=== PATIENT | female | born 1995 | race Caucasian/White ===

== ENCOUNTER → 2019-07-05 15:23 | Outpatient (BNVA) | payer MEDICAID, SELFPAY | PROVIDERS: PCP Family Medicine; Visit Provider Family Medicine | DX: R68.89 Other general symptoms and signs (principal); K52.9 Noninfective gastroenteritis and colitis, unspecified | CPT/HCPCS: 87804 ==

== ENCOUNTER → 2020-03-05 07:41 | Outpatient (BNVA) | payer MEDICAID, SELFPAY | PROVIDERS: Visit Provider Family Medicine | DX: R53.83 Other fatigue (principal); F32.9 Major depressive disorder, single episode, unspecified | CPT/HCPCS: 80053; 84439; 84443; 85025 ==

== ENCOUNTER → 2020-03-22 14:30 | Outpatient (BNVA) | payer MEDICAID, SELFPAY | PROVIDERS: Visit Provider Social Worker Clinical | DX: F34.1 Dysthymic disorder (principal) | CPT/HCPCS: 90834 ==

== ENCOUNTER 2020-04-01 09:40 | Emergency (ER) | payer MEDICAID, SELFPAY ==
[2020-04-01 09:42] VITALS: BP 127/86; PULSE 91; RESP 16; TEMP 36.5; O2SAT 95; BMI 24.5
--- NOTE | 2020-04-01 10:25 | W.ED.ARRPALP ---
HPI - Arrhythmia/Palpitations General: Chief Complaint: Arrhythmia/Palpitations Stated Complaint: high heart rate Time Seen by Provider: 04/01/20 09:47 History of Present Illness: HPI narrative: 24-year-old female presents emergency room with complaint of palpitations and irregular heartbeat on occasion been intermittent started yesterday feels like her throat is jumping. She denies any significant caffeine intake she recently stopped smoking had been doing 1/2 pack to a pack a day now is stopped completely. She denies any pseudoephedrine use any nasal sprays any street drugs she does drink occasionally usually binge drinks on a single episode she will have 5-6 drinks but did not drink the rest of the week. She not had any recent respiratory illness, no exposure to Covid no flulike symptoms no cough or shortness of breath. She does note she gets a little bit more of these skipped beats with exertion. MD complaint: skipped beats and palpitations Onset (ago): day(s) Associated symptoms: Deny nausea or vomiting Review of Systems Const: Denies: fever(s), chills, body aches, change in appetite, fatigue or malaise ENMT: Denies: throat pain, ear or mastoid pain, nasal discharge or nasal congestion Card: Denies: chest pain, edema, dyspnea on exertion or orthopnea Resp: Denies: dyspnea, productive cough or non-productive cough GI: Denies: abdominal pain, nausea, vomiting, hematemesis, coffee ground emesis, diarrhea, constipation, bloating, hematochezia or melena : Denies: flank pain, difficulty voiding, dysuria, urinary frequency or urinary urgency Skin/Breast: Denies: rash or pruritus PFSH ED PFSH: Social History Smoking and tobacco status: current every day smoker cigarettes Alcohol intake: current Alcohol intake frequency: holidays/special occasions only Current gender identity: Female Physical Exam Const: COMMON NORMALS: no acute distress GENERAL APPEARANCE: cooperative and comfortable ORIENTATION/CONSCIOUSNESS: Yes awake, Yes oriented to person, Yes oriented to place and Yes oriented to time HENMT: COMMON NORMALS: normocephalic, atraumatic and hearing grossly normal bilaterally HEAD & SCALP: normocephalic and atraumatic Neck/C-Spine: COMMON NORMALS: no JVD Resp: COMMON NORMALS: normal respiratory effort, No retractions, No use of accessory muscles and clear to auscultation bilaterally AUSCULTATION: clear to auscultation bilaterally Cardio: COMMON NORMALS: no JVD, regular rate, regular rhythm and No murmurs present (Cardio) RATE: regular rate RHYTHM: regular rhythm GI: COMMON NORMALS: Soft to palpation and No hepatosplenomegaly present AUSCULTATION: Yes normoactive bowel sounds PALPATION: Yes Soft to palpation, No Tenderness to palpation present (GI), No Guarding due to palpation present (GI) and Yes No hepatosplenomegaly present Extremity: COMMON NORMALS: normal to inspection, capillary refill normal, no clubbing, cyanosis or edema, no calf tenderness and no pedal edema Neuro: SENSORIUM/ORIENTATION: Yes oriented to person, Yes oriented to place and Yes oriented to time Skin: COMMON NORMALS: no rashes or lesions noted GENERAL SKIN EXAM: no rashes or lesions noted Course Vital Signs: Vital signs: Vital Signs Temperature 97.7 F 04/01/20 09:42 Pulse Rate 80 04/01/20 12:00 Respiratory Rate 17 04/01/20 12:00 Blood Pressure 110/69 04/01/20 12:00 Pulse Oximetry 96 04/01/20 12:00 MDM - Arrhythmia/Palpitations MDM Narrative: Medical decision making narrative: Set up for 24-hour Holter. Follow-up with primary care Lab Data: Labs: Lab Results 04/01/20 04/01/20 04/01/20 Range/Units 10:50 10:50 10:50 WBC 6.7 (4.0-10.0) 10^3/ uL RBC 4.74 (4.1-5.3) 10^6/u L Hgb 14.4 (11.5-15.3) g/dL Hct 42.5 (37.0-47.0) % MCV 89.7 (81-99) fL MCH 30.4 (28.0-34.0) pg MCHC 33.9 (30.0-36.0) g/dL RDW 11.8 L (12.1-15.1) % Plt Count 181 (130-400) 10^3/c mm MPV 11.5 H (7.4-10.4) fL Neut % (Auto) 47.9 % Lymph % (Auto) 41.3 % Wells % (Auto) 6.1 % Eos % (Auto) 4.0 % Baso % (Auto) 0.6 % Neut # (Auto) 3.20 (1.8-7.7) 10^3/u L Lymph # (Auto) 2.8 (0.8-4.8) 10^3/u L Wells # (Auto) 0.4 (0.2-0.9) 10^3/u L Eos # (Auto) 0.3 (0.0-0.8) 10^3/u L Baso # (Auto) 0.0 (0.0-0.1) 10^3/u L Nucleated RBC % (a uto) 0 % Nucleated RBCs # 0.0 /100WBC Sodium 138 (136-145) mmol/L Potassium 4.1 (3.5-5.1) mmol/L Chloride 106 (98-107) mmol/L Carbon Dioxide 21 L (22-29) mmol/L Anion Gap 15.1 (5-19) BUN 15 (6-20) mg/dL Creatinine 0.5 (0.5-0.9) mg/dL GFR Calculation 149.1 H (90-130) mL/min Glucose 98 (65-115) mg/dL Calculated Osmolal ity 287 (285-295) mOsm/k g Calcium 9.3 (8.5-10.5) mg/dL Total Bilirubin 0.3 (0.15-1.2) mg/dL AST 15 (0-32) U/L ALT 19 (0-33) U/L Alkaline Phosphata se 81 (35-105) IU/L Total Protein 7.5 (6.6-8.7) g/dL Albumin 4.7 (3.5-5.2) g/dL Globulin 2.8 (1.3-4.6) g/dL TSH 1.72 (0.27-4.20) uIU/ mL Discharge Plan Discharge Patient Disposition: Home Clinical Impression: Heart palpitations Condition: Stable Prescriptions: No Action fluoxetine [Prozac] 10 mg capsule 10 mg PO DAILY Qty: 30 RF: 5 Discharge Orders: Discharge Order (Routine); Ordered 04/01/20 Ordered By: New Wills Discharge Diet: Usual diet Discharge Activity: Increase activity as tolerated Activity Restrictions/Additional Instructions: Case management will call with arrangements for a 24-hour Holter. Avoid nicotine caffeine alcohol or any other stimulants from [id number] medications. Follow-up with your doctor with 24-hour Holter once is completed. Return to the ER if you have further problems. Discharge Date/Time: 04/01/20 12:00 Coding Level of Care Code ED Automatic Nailing Machine Operator for Di Garcia
--- NOTE | 2020-04-01 10:28 | XRR_ITS ---
PROCEDURE INFORMATION: Exam: XR Chest, 1 View Exam date and time: 04/01/2020 10:29 AM Age: 24 years old Clinical indication: Cough and dyspnea; Additional info: Dyspnea/cough TECHNIQUE: Imaging protocol: XR of the chest Views: 1 view. COMPARISON: No relevant prior studies available. FINDINGS: Lungs: Unremarkable. No consolidation. Pleural space: Unremarkable. No pleural effusion. No pneumothorax. Heart/Mediastinum: There is enlargement of the main pulmonary artery segment along the left side of the mediastinum which may indicate an enlarged pulmonary artery and the possibility of pulmonary hypertension. Clinical correlation and follow-up are advised. Echocardiogram may be helpful.. Bones/joints: Unremarkable. XR/XR chest 1V portable [id number] IMPRESSION: There is enlargement of the main pulmonary artery segment. This could indicate pulmonary hypertension. An echocardiogram may be helpful for further evaluation.
--- NOTE | 2020-04-01 10:28 | ECG_ITS ---
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1995 Requested By: New Solis Order Number: [id number] David MD: ADEEL SHEARER Measurements Intervals Goodman Rate: 91 P: 60 OH: 169 QRS: 121 QRSD: 86 T: 25 QT: 357 QTc: 441 Interpretive Statements SINUS RHYTHM POSSIBLE RIGHT VENTRICULAR HYPERTROPHY [SOME/ALL OF: PROMINENT R IN V1, LATE TRANSITION, RAD, LISA, SSS] ST DEVIATION AND MODERATE T-WAVE ABNORMALITY, CONSIDER ANTEROLATERAL ISCHEMIA [-0.1+ mV T WAVE IN V3-V6] Compared to ECG 01/12/2017 19:05:49 Atrial abnormality now present Possible ischemia now present Right-axis deviation no longer present T-wave abnormality still present Electronically Signed On 04-01-2020 20:14:58 HOME THEATER EXPERIENCE EXPERT by ADEEL SHEARER [id number] f
[2020-04-01 10:34] VITALS: BP 127/86; PULSE 95; RESP 20; O2SAT 93
[2020-04-01] MEDS: sodium chloride 0.9% 1,000 ML 999 ML IV (10:55)
[2020-04-01 11:14] LABS: Basophils % 0.6 %; Eosinophils # 0.3 10^3/uL (0.0-0.8); Hematocrit 42.5 % (37.0-47.0); Hemoglobin 14.4 g/dL (11.5-15.3); Lymphocytes # 2.8 10^3/uL (0.8-4.8); Lymphocytes % 41.3 %; Mean Corpuscular HGB Conc 33.9 g/dL (30.0-36.0); Mean Corpuscular Hemoglobin 30.4 pg (28.0-34.0); Mean Corpuscular Volume 89.7 fL (81-99); Mean Platelet Volume 11.5 fL (7.4-10.4); Monocytes # 0.4 10^3/uL (0.2-0.9); Monocytes % 6.1 %; Neutrophils % 47.9 %; Nucleated Red Blood Cells % 0 %; Platelet Count 181 10^3/cmm (130-400); Red Blood Count 4.74 10^6/uL (4.1-5.3); Red Cell Distribution Width 11.8 % (12.1-15.1); White Blood Count 6.7 10^3/uL (4.0-10.0)
[2020-04-01 11:29] VITALS: BP 95/73; PULSE 83; RESP 20; O2SAT 97
[2020-04-01 11:30] LABS: Alanine Aminotransferase 19 U/L (0-33); Albumin Level 4.7 g/dL (3.5-5.2); Alkaline Phosphatase 81 IU/L (35-105); Anion Gap 15.1 (5-19); Aspartate Amino Transferase 15 U/L (0-32); Blood Urea Nitrogen 15 mg/dL (6-20); Calcium 9.3 mg/dL (8.5-10.5); Carbon Dioxide 21 mmol/L (22-29); Chloride 106 mmol/L (98-107); Globulin 2.8 g/dL (1.3-4.6); Glomerular Filtration Rate 149.1 mL/min (90-130); Glucose 98 mg/dL (65-115); Osmolality Calculated 287 mOsm/kg (285-295); Potassium 4.1 mmol/L (3.5-5.1); Sodium 138 mmol/L (136-145); Total Bilirubin 0.3 mg/dL (0.15-1.2); Total Protein 7.5 g/dL (6.6-8.7)
[2020-04-01 12:00] VITALS: BP 110/69; PULSE 80; RESP 17; O2SAT 96
[2020-04-01 12:37] LABS: Thyroid Stimulating Hormone 1.72 uIU/mL (0.27-4.20)
--- NOTE | 2020-04-02 14:39 | DCPLANNER ---
manager lab had message to schedule a follow up appointment for patient with [facility] for a 24 hour halter monitor. manager lab faxed order for monitor to [facility], will call for appointment information.
--- NOTE | 2020-04-04 10:39 | DCPLANNER ---
Patient has a follow up appointment scheduled for Thursday, April 16, 2020 at 1:30 with [facility] for a24 hour monitor. Clinic will call patient with appointment information.
--- NOTE | 2020-05-14 12:33 | DCPLANNER ---
Patient had a follow up appointment scheduled for 04.16.20 with [facility] - patient did not attend appointment.
== END 2020-04-01 12:00 | disposition home or self-care (01) ==
PROVIDERS: Emergency Provider Family Medicine
DX: R00.2 Palpitations (principal); F17.210 Nicotine dependence, cigarettes, uncomplicated
CPT/HCPCS: 12345; 71045; 80053; 84443; 85025; 93005; 96360; 99283; J7030

== ENCOUNTER 2021-02-09 13:09 | Observation (INO) | payer MEDICAID, SELFPAY ==
[2021-02-09] VITALS (30 sets, daily range): BP systolic 102–128; BP diastolic 68–92; PULSE 78–121; RESP 15–30; TEMP 36.4; O2SAT 90–95; BMI 24.5
--- NOTE | 2021-02-09 13:36 | CTR_ITS ---
PROCEDURE INFORMATION: Exam: CT Head Without Contrast Exam date and time: 02/09/2021 1:36 PM Age: 25 years old Clinical indication: Visual disturbance and weakness, extremity; Left; Additional info: Visual changes, left arm weakness TECHNIQUE: Imaging protocol: Computed tomography of the head without contrast. Sagittal and coronal reformatted images were created and reviewed. Radiation optimization: All CT scans at this facility use at least one of these dose optimization techniques: automated exposure control; mA and/or kV adjustment per patient size (includes targeted exams where dose is matched to clinical indication); or iterative reconstruction. COMPARISON: CT head wo con* [id number] 01/12/2017 7:49 PM RADIATION DOSE METRICS: Total DLP (mGy-cm): 759.5 FINDINGS: Brain: No acute intracranial hemorrhage. No acute infarct. No intra-axial or extra-axial masses. Ferreira-white matter differentiation is preserved. No cerebral edema. No extra-axial fluid collections. No midline shift. No evidence for Chiari 1 malformation. Cerebral ventricles: No hydrocephalus. Paranasal sinuses: Mild mucoperiosteal thickening in the the left sphenoid sinus. Other visualized paranasal sinuses are clear. Mastoid air cells: Visualized mastoid air cells are clear. Orbital cavity: No acute abnormality in the visualized orbits. Bones/joints: No acute fracture. Soft tissues: The extracranial soft tissues are unremarkable. CT/CT head wo con* [id number] IMPRESSION: 1. No acute abnormality of the brain. 2. Mild mucoperiosteal thickening in the the left sphenoid sinus. Radiation Dose CTDIVOL = (mGy): DLP = 759.5 (mGy-cm)
--- NOTE | 2021-02-09 13:37 | ED_ITS ---
HPI - Syncope General: Chief Complaint: Syncope Stated Complaint: Near Syncope Time Seen by Provider: 02/09/21 13:25 History of Present Illness: HPI narrative: This patient is a 25 year old female presenting from home with an episode of nearly passing out, visual changes and left arm weakness. She was at home at around noon today and noted that her left arm felt a little funny. She tried to set her phone down on the counter and she missed the counter, dropping it on the floor. She bent over to pick it up and got lightheaded feeling like she might pass out. She also developed blurry vision - like static. She says that was there initially, then went away, but came back since being here. She has a history of migraines - and has the vision changes with her migraines, but has never had any other neuro symptoms with her migraines. She has not taken any medications today and does not normally take anything for her migraines. She admits to a history of anxiety and has some tingling around her mouth which she knows is her anxiety. She also has heart palpitations and had a lot of them yesterday. She notes a URI last week that was going around her place of work - everyone was tested for COVID and were all neg. She has not had any other changes in activity recently but notes that she has been under a lot of stress. complaint: felt faint and almost passed out Onset (ago): hour(s) (1.5) Prodromal symptoms: vision changes, lightheaded and palpitations Context: at rest Injuries sustained associated with event: none Associated symptoms: Reports other (left hand feels like it is slow to react, she is right handed); Deny abdominal pain, chest pain, fever(s), headache(s) or nausea Review of Systems General: Reports: 10 or more systems reviewed and unremarkable except in HPI and below Const: Denies: fever(s), chills, fatigue or malaise Eyes: Reports: change in vision and blurry vision ENMT: Denies: odynophagia Card: Reports: palpitations and pre-syncope; Denies: chest pain or swelling of feet/ankles Resp: Reports: dyspnea; Denies: productive cough or non-productive cough GI: Denies: abdominal pain, nausea or vomiting : Denies: flank pain or difficulty voiding Musc: Denies: neck pain or back pain Skin/Breast: Denies: rash Neuro: Reports: weakness in extremities and lack of coordination; Denies: headache(s) or numbness in extremities Psych: Reports: anxiety and depression Cameron/Lymph: Denies: easy bruising or easy bleeding PFSH ED PFSH: Medical History Generalized anxiety disorder Family History Grandmother Cancer Paternal -- stomach and skin Grandfather Hyperlipidemia Paternal Hypertension Paternal Mother Ovarian cyst Denies family history of Diabetes Clotting disorder Chronic kidney disease (CKD) Bleeding disorder Thyroid disease Stroke Female Reproductive History: Date of last menstrual period: 01/29/21 Physical Exam Const: COMMON NORMALS: no acute distress, patient oriented x3, no limitations and alert GENERAL APPEARANCE: cooperative and comfortable HENMT: HEAD & SCALP: normal to inspection FACE & SINUS: normal facial exam Eye: GENERAL EYE: appearance normal, both eyes and all related structures Neck/C-Spine: COMMON NORMALS: supple, no meningeal signs and no JVD Chest: COMMONS NORMALS: normal inspection of the chest Resp: COMMON NORMALS: normal respiratory effort, No use of accessory muscles and clear to auscultation bilaterally AUSCULTATION: clear to auscultation bilaterally Cardio: COMMON NORMALS: no JVD, regular rate, regular rhythm and No murmurs present (Cardio) RATE: regular rate RHYTHM: regular rhythm GI: COMMON NORMALS: Normal to inspection, nondistended, normoactive bowel sounds present, Soft to palpation and non-tender INSPECTION: Yes normal to inspection AUSCULTATION: Yes normoactive bowel sounds PALPATION: Yes Soft to palpation Back/Pelvis: COMMON NORMALS: thoracic and lumbar spine normal to inspection Extremity: COMMON NORMALS: normal to inspection Neuro: COMMON NORMALS: patient oriented x3, moves all extremities, no focal motor deficits and no sensory deficits noted SENSORIUM/ORIENTATION: Yes alert MENINGEAL SIGNS: Yes no meningeal signs CRANIAL NERVES: Yes CN normal except as noted COORDINATION/BALANCE: [id number] test normal COORDINATION: [id number]-[id number] test normal Psych: COMMON NORMALS: mental status grossly normal, cooperative and normal affect Skin: COMMON NORMALS: no rashes or lesions noted and turgor normal GENERAL SKIN EXAM: no rashes or lesions noted and turgor normal Course ED course: EKG abnormal - changes new since prior. RN noted that her sats dropped to 83% when she got up to the bedside commode and the patient did compl ain of feeling SOB. She had mentioned feeling short of breath in the HPI and ROS, but had attributed it to her anxiety. Vital Signs: Vital signs: Vital Signs Temperature 97.5 F L 02/09/21 13:16 Pulse Rate 88 02/09/21 17:30 Respiratory Rate 16 02/09/21 17:30 Blood Pressure 111/71 02/09/21 17:30 Pulse Oximetry 94 02/09/21 17:30 MDM - Syncope Lab Data: Labs: Lab Results 02/09/21 02/09/21 02/09/21 Range/Units 13:49 13:49 13:49 WBC 6.8 (4.0-10.0) 10^3/ uL RBC 5.01 (4.1-5.3) 10^6/u L Hgb 15.4 H (11.5-15.3) g/dL Hct 45.1 (37.0-47.0) % MCV 90.0 (81-99) fl MCH 30.7 (28.0-34.0) pg MCHC 34.1 (30.0-36.0) g/dL RDW 11.8 L (12.1-15.1) % Plt Count 186 (130-400) 10^3/c mm MPV 11.7 H (7.4-10.4) fL Neut % (Auto) 49.6 % Lymph % (Auto) 39.5 % Washburn % (Auto) 6.5 % Eos % (Auto) 3.4 % Baso % (Auto) 0.7 % Neut # (Auto) 3.35 (1.8-7.7) 10^3/u L Lymph # (Auto) 2.7 (0.8-4.8) 10^3/u L Washburn # (Auto) 0.4 (0.2-0.9) 10^3/u L Eos # (Auto) 0.2 (0.0-0.8) 10^3/u L Baso # (Auto) 0.1 (0.0-0.1) 10^3/u L Nucleated RBC % (a uto) 0 % Nucleated RBCs # 0.0 /100WBC D-Dimer 0.30 (0-0.59) ug/mIFE U Sodium 138 (136-145) mmol/L Potassium 4.1 (3.5-5.1) mmol/L Chloride 105 (98-107) mmol/L Carbon Dioxide 22 (22-29) mmol/L Anion Gap 15.1 (5-19) BUN 7 (6-20) mg/dL Creatinine 0.6 (0.5-0.9) mg/dL GFR Calculation 119.9 (90-130) mL/min Glucose 106 (65-115) mg/dL Calculated Osmolal ity 284 L (285-295) mOsm/k g Calcium 8.8 (8.5-10.5) mg/dL Total Bilirubin 0.4 (0.15-1.2) mg/dL AST 13 (0-32) U/L ALT 11 (0-33) U/L Alkaline Phosphata se 70 (35-105) IU/L Troponin T Baselin e (0-10) ng/L Troponin T 120 Min cocopah (0-10) ng/L Delta Troponin T (0-10) ABS# NT-Pro-B Natriuret Pep (0-125) pg/mL Total Protein 7.0 (6.6-8.7) g/dL Albumin 4.4 (3.5-5.2) g/dL Globulin 2.6 (1.3-4.6) g/dL HCG, Qual (Negative) Urine Color (Yellow) Urine Appearance (CLEAR) Urine pH (5-7) Ur Specific Gravit y (1.005-1.030) Urine Protein (Negative) Urine Glucose (UA) (Normal) Urine Ketones (Negative) Urine Blood (Negative) Urine Nitrate (Negative) Urine Bilirubin (Negative) Prot Sulfosalicyli c Acd (Negative) Urine Urobilinogen (Negative) mg/dL Ur Leukocyte Sherly ase (Negative) Urine RBC (0-2) /hpf Urine WBC (0-5) /hpf Ur Squamous Epith Cells (0-5) /hpf Amorphous Sediment Urine Bacteria (NONE) /hpf SARS-CoV-2 Ag (Rap id) (Negative) 09/12/21 09/12/21 09/12/21 Range/Units 13:49 13:49 15:03 WBC (4.0-10.0) 10^3/ uL RBC (4.1-5.3) 10^6/u L Hgb (11.5-15.3) g/dL Hct (37.0-47.0) % MCV (81-99) fl MCH (28.0-34.0) pg MCHC (30.0-36.0) g/dL RDW (12.1-15.1) % Plt Count (130-400) 10^3/c mm MPV (7.4-10.4) fL Neut % (Auto) % Lymph % (Auto) % Washburn % (Auto) % Eos % (Auto) % Baso % (Auto) % Neut # (Auto) (1.8-7.7) 10^3/u L Lymph # (Auto) (0.8-4.8) 10^3/u L Washburn # (Auto) (0.2-0.9) 10^3/u L Eos # (Auto) (0.0-0.8) 10^3/u L Baso # (Auto) (0.0-0.1) 10^3/u L Nucleated RBC % (a uto) % Nucleated RBCs # /100WBC D-Dimer (0-0.59) ug/mIFE U Sodium (136-145) mmol/L Potassium (3.5-5.1) mmol/L Chloride (98-107) mmol/L Carbon Dioxide (22-29) mmol/L Anion Gap (5-19) BUN (6-20) mg/dL Creatinine (0.5-0.9) mg/dL GFR Calculation (90-130) mL/min Glucose (65-115) mg/dL Calculated Osmolal ity (285-295) mOsm/k g Calcium (8.5-10.5) mg/dL Total Bilirubin (0.15-1.2) mg/dL AST (0-32) U/L ALT (0-33) U/L Alkaline Phosphata se (35-105) IU/L Troponin T Baselin e 6 (0-10) ng/L Troponin T 120 Min cocopah (0-10) ng/L Delta Troponin T (0-10) ABS# NT-Pro-B Natriuret Pep 302 H (0-125) pg/mL Total Protein (6.6-8.7) g/dL Albumin (3.5-5.2) g/dL Globulin (1.3-4.6) g/dL HCG, Qual Negative (Negative) Urine Color (Yellow) Urine Appearance (CLEAR) Urine pH (5-7) Ur Specific Gravit y (1.005-1.030) Urine Protein (Negative) Urine Glucose (UA) (Normal) Urine Ketones (Negative) Urine Blood (Negative) Urine Nitrate (Negative) Urine Bilirubin (Negative) Prot Sulfosalicyli c Acd (Negative) Urine Urobilinogen (Negative) mg/dL Ur Leukocyte Sherly ase (Negative) Urine RBC (0-2) /hpf Urine WBC (0-5) /hpf Ur Squamous Epith Cells (0-5) /hpf Amorphous Sediment Urine Bacteria (NONE) /hpf SARS-CoV-2 Ag (Rap id) (Negative) 02/09/21 02/09/21 02/09/21 Range/Units 15:03 16:32 18:04 WBC (4.0-10.0) 10^3/ uL RBC (4.1-5.3) 10^6/u L Hgb (11.5-15.3) g/dL Hct (37.0-47.0) % MCV (81-99) fl MCH (28.0-34.0) pg MCHC (30.0-36.0) g/dL RDW (12.1-15.1) % Plt Count (130-400) 10^3/c mm MPV (7.4-10.4) fL Neut % (Auto) % Lymph % (Auto) % Washburn % (Auto) % Eos % (Auto) % Baso % (Auto) % Neut # (Auto) (1.8-7.7) 10^3/u L Lymph # (Auto) (0.8-4.8) 10^3/u L Washburn # (Auto) (0.2-0.9) 10^3/u L Eos # (Auto) (0.0-0.8) 10^3/u L Baso # (Auto) (0.0-0.1) 10^3/u L Nucleated RBC % (a uto) % Nucleated RBCs # /100WBC D-Dimer (0-0.59) ug/mIFE U Sodium (136-145) mmol/L Potassium (3.5-5.1) mmol/L Chloride (98-107) mmol/L Carbon Dioxide (22-29) mmol/L Anion Gap (5-19) BUN (6-20) mg/dL Creatinine (0.5-0.9) mg/dL GFR Calculation (90-130) mL/min Glucose (65-115) mg/dL Calculated Osmolal ity (285-295) mOsm/k g Calcium (8.5-10.5) mg/dL Total Bilirubin (0.15-1.2) mg/dL AST (0-32) U/L ALT (0-33) U/L Alkaline Phosphata se (35-105) IU/L Troponin T Baselin e (0-10) ng/L Troponin T 120 Min cocopah 6.00 (0-10) ng/L Delta Troponin T 0 (0-10) ABS# NT-Pro-B Natriuret Pep (0-125) pg/mL Total Protein (6.6-8.7) g/dL Albumin (3.5-5.2) g/dL Globulin (1.3-4.6) g/dL HCG, Qual (Negative) Urine Color Yellow (Yellow) Urine Appearance Clear (CLEAR) Urine pH 8 H (5-7) Ur Specific Gravit y 1.015 (1.005-1.030) Urine Protein Neg (Negative) Urine Glucose (UA) Norm (Normal) Urine Ketones Negative (Negative) Urine Blood Neg (Negative) Urine Nitrate Negative (Negative) Urine Bilirubin Neg (Negative) Prot Sulfosalicyli c Acd Negative (Negative) Urine Urobilinogen Norm (Negative) mg/dL Ur Leukocyte Sherly ase 2+ H (Negative) Urine RBC None (0-2) /hpf Urine WBC 10-15 H (0-5) /hpf Ur Squamous Epith Cells 5-10 H (0-5) /hpf Amorphous Sediment Not Reportable Urine Bacteria Trace (NONE) /hpf SARS-CoV-2 Ag (Rap id) Negative (Negative) EKG Data^: EKG 1: EKG interpretation date: 02/09/21 EKG interpretation time: 13:59 Ischemic changes: non-specific ST-T wave changes (RVH, inverted T waves) Discharge Plan Discharge Prescriptions: No Action No Known Home Medications RF: 0 Coding Level of Care Code ED Operations Asst for Chg Fwd Exam Comprehensive
[2021-02-09 13:59] LABS: Basophils # 0.1 10^3/uL (0.0-0.1); Basophils % 0.7 %; Eosinophils # 0.2 10^3/uL (0.0-0.8); Eosinophils % 3.4 %; Hematocrit 45.1 % (37.0-47.0); Hemoglobin 15.4 g/dL (11.5-15.3); Lymphocytes # 2.7 10^3/uL (0.8-4.8); Lymphocytes % 39.5 %; Mean Corpuscular HGB Conc 34.1 g/dL (30.0-36.0); Mean Corpuscular Hemoglobin 30.7 pg (28.0-34.0); Mean Platelet Volume 11.7 fL (7.4-10.4); Monocytes # 0.4 10^3/uL (0.2-0.9); Monocytes % 6.5 %; Neutrophils # 3.35 10^3/uL (1.8-7.7); Neutrophils % 49.6 %; Nucleated Red Blood Cells % 0 %; Platelet Count 186 10^3/cmm (130-400); Red Blood Count 5.01 10^6/uL (4.1-5.3); Red Cell Distribution Width 11.8 % (12.1-15.1); White Blood Count 6.8 10^3/uL (4.0-10.0)
--- NOTE | 2021-02-09 14:06 | ECG_ITS ---
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 Measurements Intervals [place]roy Rate: 94 P: 68 DE: 187 QRS: 126 QRSD: 90 T: -6 QT: 347 QTc: 436 Interpretive Statements SINUS RHYTHM Possible right ventricular hypertrophy ST and T wave abnormality, consider anterolateral ischemia Compared to ECG 04/01/2020 09:45:31 No significant change Electronically Signed On 02-10-2021 19:13:41 CDT by Jeannine Aguilar M.D. [id number] f
[2021-02-09 14:15] LABS: Alanine Aminotransferase 11 U/L (0-33); Albumin Level 4.4 g/dL (3.5-5.2); Alkaline Phosphatase 70 IU/L (35-105); Aspartate Amino Transferase 13 U/L (0-32); Blood Urea Nitrogen 7 mg/dL (6-20); Calcium 8.8 mg/dL (8.5-10.5); Carbon Dioxide 22 mmol/L (22-29); Chloride 105 mmol/L (98-107); Globulin 2.6 g/dL (1.3-4.6); Glomerular Filtration Rate 119.9 mL/min (90-130); Glucose 106 mg/dL (65-115); Osmolality Calculated 284 mOsm/kg (285-295); Sodium 138 mmol/L (136-145); Total Bilirubin 0.4 mg/dL (0.15-1.2)
[2021-02-09 14:39] LABS: Anion Gap 15.1 (5-19)
[2021-02-09 14:40] LABS: Potassium 4.1 mmol/L (3.5-5.1)
[2021-02-09 14:48] LABS: Troponin(5th) Baseline 6 ng/L (0-10)
--- NOTE | 2021-02-09 15:03 | CTR_ITS ---
PROCEDURE INFORMATION: Exam: CTA Chest With Contrast Exam date and time: 02/09/2021 3:03 PM Age: 25 years old Clinical indication: Shortness of breath; Additional info: Cp, SOB, syncope TECHNIQUE: Imaging protocol: Computed tomographic angiography of the chest with contrast. 3D rendering (Not supervised by radiologist): MIP and/or 3D reconstructed images were created by the technologist. Radiation optimization: All CT scans at this facility use at least one of these dose optimization techniques: automated exposure control; mA and/or kV adjustment per patient size (includes targeted exams where dose is matched to clinical indication); or iterative reconstruction. Contrast material: OMNIPAQUE 350; Contrast volume: 70 ml; Contrast route: INTRAVENOUS (IV); COMPARISON: CR XR chest 1V portable [id number] 04/01/2020 10:35 AM RADIATION DOSE METRICS: Total DLP (mGy-cm): 492.3 FINDINGS: Pulmonary arteries: Normal. No pulmonary emboli. Aorta: Unremarkable. No aortic aneurysm. No aortic dissection. Lungs: Unremarkable. No consolidation. No masses. Pleural spaces: Unremarkable. No pneumothorax. No pleural effusion. Heart: Unremarkable. No cardiomegaly. No pericardial effusion. Lymph nodes: Unremarkable. No enlarged lymph nodes. Bones/joints: Unremarkable. No acute fracture. Soft tissues: Unremarkable. CT/CT angio chest PE protcl [id number] IMPRESSION: No acute findings. Radiation Dose CTDIVOL = (mGy): DLP = 492.3 (mGy-cm)
[2021-02-09 15:40] LABS: Add Urine Microscopic? YES; Bilirubin Urine Neg (Negative); Blood Urine Neg (Negative); Glucose Urine UA Norm (Normal); Ketones Urine Negative (Negative); Leukocyte Esterase Urine 2+ (Negative); Nitrate Urine Negative (Negative); Protein Urine Neg (Negative); Specific Gravity, Urine 1.015 (1.005-1.030); Urine Appearance Clear (CLEAR); Urine Color Yellow (Yellow); Urobilinogen Urine Norm (Negative); pH Urine 8 (5-7)
[2021-02-09 15:43] LABS: Add Urine Culture? No; Bacteria Urine TRACE /hpf
[2021-02-09 15:44] LABS: HCG Qualitative Urine. Negative (Negative)
--- NOTE | 2021-02-09 16:06 | ECG_ITS ---
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 Measurements Intervals [place] Rate: 104 P: 64 NE: 174 QRS: 132 QRSD: 90 T: 2 QT: 338 QTc: 445 Interpretive Statements SINUS TACHYCARDIA Compared to ECG 02/09/2021 14:49:53 Sinus rhythm no longer present Electronically Signed On 02-10-2021 19:22:13 CDT by Jeannine Aguilar M.D. [id number]
[2021-02-09] MEDS: iohexol 350 mg/mL 100 mL Btl IV (16:18)
[2021-02-09 17:00] LABS: Sulfosalicylic Acid Urine Negative (Negative)
[2021-02-09 17:24] LABS: Troponin 5 2HR Delta 0 ABS# (0-10)
[2021-02-09 17:39] LABS: NT Pro B Type Natriuretic Pept 302 pg/mL (0-125)
[2021-02-09 19:11] LABS: SARS Covid-2 Antigen Negative (Negative)
--- NOTE | 2021-02-09 19:16 | USCV_ITS ---
Pedro Lily Age: 25 Gender: F : 1995 Exam Date: 02/09/2021 19:58 Ordering Phys: Technologist: Carlita Prajapati Exam Location: [facility] – [place] Indication: Visual changes left arm weakness BP: 105 / 81 HR: 81 Rhythm: Sinus Technical Quality: Adequate MEASUREMENTS (Male / Female) Normal Values 2D ECHO LV Diastolic Diameter PLAX 3.3 cm 4.2 - 5.9 / 3.9 - 5.3 cm LV Systolic Diameter PLAX 2.4 cm IVS Diastolic Thickness 1.2 cm 0.6 - 1.0 / 0.6 - 0.9 cm IVS Systolic Thickness 1.5 cm LVPW Diastolic Thickness 1.3 cm 0.6 - 1.0 / 0.6 - 0.9 cm LVPW Systolic Thickness 1.3 cm LVOT Diameter 2.0 cm LV Ejection Fraction 2D Teich 56.9 % LV Ejection Fraction MOD 2C 51.8 % LV Ejection Fraction 2C AL 55.1 % LA Diameter 2.6 cm LA Width 2.4 cm LA Height 3.3 cm RA Width 2.3 cm RA Height 3.5 cm Aorta at Sinotubular Diameter 2.2 cm M-MODE Aortic Annulus Diameter 2.8 cm LA Ao Ratio MM 1.0 MV E Point Septal Separation 0.5 cm DOPPLER AV Peak Velocity 88.0 cm/s LVOT Peak Velocity 75.0 cm/s AV Area Cont Eq vti 2.6 cm squared AV Area Cont Eq pk 2.7 cm squared MV Area PHT 5.0 cm squared Mitral E to A Ratio 0.7 MV E' Velocity 29.0 cm/s Mitral E to MV E' Ratio 3.2 Mitral E to LV E' Lateral Ratio 3.1 Mitral E to LV E' Septal Ratio 3.3 TR Peak Velocity 202.0 cm/s TR Peak Gradient 16.3 mmHg Right Atrial Pressure 3.0 mmHg Pulmonary Artery Systolic Pressu 19.3 mmHg PV Peak Velocity 72.0 cm/s RV Acceleration Time 0.1 s RV Ejection Time 0.3 s RV AcT/ET 0.3 FINDINGS Left Ventricle Normal left ventricular size, systolic function and wall thickness, with no regional wall motion abnormalities. Left ventricular ejection fraction is estimated at 60-65 %. Normal diastolic function. Flattened septum in systole consistent with right ventricle pressure overload. Abnormal relaxation filling pattern. Right Ventricle Moderately dilated right ventricle with at least moderately decreased right ventricular systolic function. Increased right ventricular wall thickness. RVSP could not be calculated due to incomplete tricuspid regurgitation velocity profile. Right Atrium Normal right atrial size. No ASD or PFO visualized on the study. Left Atrium Normal left atrial size. Mitral Valve Moderately thickened myxomatous appearing mitral valve. Mild bileaflet mitral valve prolapse. No mitral valve stenosis. Mild mitral valve regurgitation. Aortic Valve Mildly thickened trileaflet aortic valve. No aortic valve stenosis. No aortic valve regurgitation. Tricuspid Valve Thickened tricuspid valve. Trace to mild tricuspid valve regurgitation. Pulmonic Valve Structurally normal pulmonic valve. Right ventricular outflow tract diameter measured at 3.1 cm at the level of pulmonary valve. Dilated main pulmonary artery (measured 4 cm anteroposteriorly). No pulmonary valve stenosis. Trace pulmonary valve regurgitation. Pericardium No pericardial effusion. Aorta Normal size aortic root and proximal ascending aorta. Normal- sized aortic arch. Normal-sized inferior vena cava with normal respiratory variation. CONCLUSIONS 1. Normal left ventricular size, systolic function and wall thickness, with no regional wall motion abnormalities. Left ventricular ejection fraction is estimated at 60-65 %. Normal diastolic function. Flattened septum in systole consistent with right ventricle pressure overload. 2. Moderately dilated right ventricle, increased right ventricular wall thickness with at least moderately decreased right ventricular systolic function. 3. Moderately thickened myxomatous appearing mitral valve. Bileaflet mitral valve prolapse. Mild mitral valve regurgitation. 4. No ASD or PFO visualized on the study. 5. Right ventricular outflow tract diameter measured at 3.1 cm at the level of pulmonary valve. Dilated main pulmonary artery (measured 4 cm anteroposteriorly). 6. DIMPLE is recommended for complete assessment of mitral valve, pulmonary artery and dilated right ventricle. Jeannine Aguilar MD (Electronically Signed) Final Date: 09 February 2021 21:24 Amended: 11 February 2021 12:44 C
[2021-02-09 20:15] LABS: Troponin 5 6HR Delta 0 ng/L (0-12)
[2021-02-10] VITALS (11 sets, daily range): BP systolic 97–109; BP diastolic 63–76; PULSE 69–91; RESP 16–20; TEMP 36.4–36.6; O2SAT 90–94; BMI 25.3
[2021-02-10 02:11] LABS: Thyroid Stimulating Hormone 0.72 uIU/mL (0.27-4.20)
--- NOTE | 2021-02-10 02:21 | P.HP_ITS ---
Providers/Chief Complaint Admitting Physician: Mari Martinez MD Primary Care Provider: Matt Reyes DO Chief Complaint: NEAR SYNCOPAL EVENT @ NOON;L ARM LAGGING/COLDER History of Present Illness Lily Vasquez is a 25 year old female without known significant past medical history presenting to the hospital today with an episode of presyncope at close to morning. Patient states that she was at rest, sitting in a chair when she started feeling slightly lightheaded and uncoordinated. Describes the episode as not being able to coordinate typing text messages on her phone, missing placing the phone on the counter, taking time to comprehend what is on her screen, vague left arm slowness/lagging. Symptoms resolved spontaneously. Denies any past similar episodes. However on asking specifically, endorses a past medical history of episodic palpitations over the past 2 years, most recently yesterday, progressive dyspnea which she experiences while attempting to climb 2 flight of stairs, walking less than usual distances. States that while these activities do not make her stop, she is attempting to catch her breath afterwards. In the ER today, she was noted to have an oxygen saturation dropped down to 83% while attempting to move from bed to bedside commode. This recovered on laying back to rest. At the time of my assessment patient is saturating 93% on room air while sitting in bed. EKG today shows T wave inversion in leads V1 through V4, also present on leads dating back to 03/2020. Incidental finding on x-rays of 03/2020 had shown enlargement of the left main pulmonary artery, possibly correlating with pulmonary hypertension. CTA of the chest today is negative for any PE. The above findings and clinical presentation requested an echocardiogram which returned with moderately dilated right ventricle with at least moderately decreased right ventricular systolic function. Moderately thickened myxomatous appearing mitral valve. Bileaflet mitral valve prolapse. Mild to moderate mitral valve regurgitation. Patient denies being diagnosed with any valvular heart disease in the past. Does not have a history of COPD asthma or chronic respiratory illness. She is unvaccinated for COVID-19. She had COVID-19 infection in March 2020. Review of Systems General: Reports: 10 or more systems reviewed and unremarkable except in HPI and below Const: Denies: fever(s), chills or body aches Eyes: Denies: change in vision, blurry vision or photophobia ENMT: Denies: throat pain, enlarged tonsils, odynophagia or nasal congestion Card: Reports: palpitations and irregular heart rhythm; Denies: chest pain, edema, swelling of feet/ankles, lightheadedness, pre- syncope, dyspnea on exertion or orthopnea Resp: Reports: dyspnea; Denies: productive cough, non-productive cough, wheezing, stridor, pain on inspiration, change in phlegm color, hemoptysis or chest congestion GI: Denies: abdominal pain, nausea, vomiting, hematemesis, coffee ground emesis, dysphagia, heartburn, diarrhea, constipation, GI cramping, change in stool character, hematochezia or melena : Denies: flank pain, difficulty voiding, dysuria, urinary frequency, urinary urgency, urinary hesitancy or hematuria Musc: Denies: neck pain, back pain, extremity pain, joint swelling, joint warmth or deformity Neuro: Denies: headache(s), numbness in extremities, weakness in extremities, sensory changes, difficulty walking, frequent falls, dizziness, vertigo, behavioral changes, Slurred speech present or seizure-like activity Psych: Denies: anxiety, depression, suicidal ideation or homicidal ideation Endo: Denies: polyuria, polydipsia, tired all the time, cold intolerance or hot flashes Cameron/Lymph: Denies: easy bruising or easy bleeding Medications/Allergies Home Medications Medication Instructions Recorded Confirmed Last Taken Type No Known Home Medications 02/09/21 02/09/21 Unknown History Allergies Allergy/AdvReac Type Severity Reaction Status Date / Time No Known Allergies Allergy Verified 11/15/20 12:51 PFSH Acute PFSH: Medical History (Updated 02/10/21 @ 02:43 by Mari Martinez MD) Acute depression BMI 25.0-25.9,adult Dysmenorrhea, unspecified Exposure to COVID-19 virus mar 2020 Flu-like symptoms Gastroenteritis Generalized anxiety disorder History of ovarian cyst PMS (premenstrual syndrome) Sinusitis, acute frontal Tiredness Surgical History (Updated 02/10/21 @ 02:42 by Mari Martinez MD) History of tonsillectomy Family History Grandmother Cancer Paternal -- stomach and skin Grandfather Hyperlipidemia Paternal Hypertension Paternal Mother Ovarian cyst Denies family history of Diabetes Clotting disorder Chronic kidney disease (CKD) Bleeding disorder Thyroid disease Stroke Female Reproductive History: Date of last menstrual period: 01/29/21 Vitals/I&O/Wt Last Vital Signs Temp 97.5 F L 02/09/21 13:16 Pulse 82 02/10/21 01:00 Resp 20 H 02/10/21 01:00 BP 102/63 02/10/21 01:00 Pulse Ox 94 02/10/21 01:00 Weight last 48 hrs Weight 58.967 kg Physical Exam Narrative: EXAM NARRATIVE: General: No acute distress, AO x3 HEENT: PERRLA, pupils bilaterally equal and reactive, pallors not present Chest: Normal vesicular breath sounds, no added sounds, equal good air entry bilaterally CVS: S1-S2 regular, no murmurs, no tachycardia, no gallops, no rubs Abdomen: Soft, nontender, no organomegaly, bowel sounds present Neuro: No focal deficits, no facial deformity, AO x3, power 5/5 in all limbs Extremities: No edema, clubbing or cyanosis Data : 02/09/21 13:49 02/09/21 13:49 A&P Assessment and plan (1) Myxomatous mitral valve regurgitation: Status: Acute (2) Mitral valve prolapse: Status: Acute (3) Right ventricular dysfunction: Status: Acute (4) Pre-syncope: negative Ct head Status: Acute Additional A&P Information Admit for observation, telemetry monitoring Patient presenting with symptoms of presyncope, palpitations, progressively increasing dyspnea with echocardiographic findings of myxomatous mitral valve regurgitation, bicuspid mitral valve prolapse and right ventricular dysfunction. Transient oxygenation dropped to 83% with exertion, saturating 94% on room air currently. Cardiology consult in a.m. May need DIMPLE for further assessment Attestations Medical Necessity Statement*: less than 2 midnight anticipated for above de fined care Coding Level of Care Code Acute Trimming Department Blocker for [facility] Diagnoses Myxomatous mitral valve regurgitation I34.0 Mitral valve prolapse I34.1 Right ventricular dysfunction I51.9 Pre-syncope R55
[2021-02-10 02:27] LABS: INR 1.12 (0.8-1.2)
--- NOTE | 2021-02-10 08:50 | PC.CHAP ---
Pastoral Care Encounter/Spiritual Assessment Type of Contact [] Declined accounts payable supervisor visit [] Patient/Family/Request visit [] Outpatient visit [] Follow-up visit [] Physician referral [] Code/Alert [x] Routine visit [] Staff referral [] Actively dying [] Patient sleeping [] Family support [] [] Out of room [] Palliative care [] [] Receiving care in room [] Pre-surgical visit [] Trauma [] Long length of stay [] ICU visit [] Other: Relational/Emotional Strength [x] Patient feels connected with others/family/visitors/staff [] Distress [] Loneliness/isolation [] Abandonment Spirituality of Patient [x] Person of Delphine x[] Attends Confucianist of their Delphine x[] Believes in Prayer [] Reads Bible or Church materials [] There are Spiritual issues to be addressed Experimental Box Tester Interventions [x] Prayer [x] Active listening [x] Non-anxious presence [x] Spiritual/emotional support [] Crisis/trauma care [] Spiritual counseling [] Bereavement support [] Provided bereavement packet [] Provided Bible/devotional materials [] Provided toy/stuffed animal, coloring book to patient or family member [] Provided Communion [] Anointing/[place] [] Salvation [x] Completed spiritual assessment [] Other: Impact on Illness or Injury [] Angry [] Fearful [] Anxious [] Often cries [] Exhaustion [] Unable to work [] Unable to attend scientologist [] Unable to walk/stand [] Unable to read [] Unable to drive [] Unable to eat/drink [] Unable to sleep [] Unable to be with family [] Patient intubated [] Other: Summary Time spent with patient 10 min
--- NOTE | 2021-02-10 09:16 | P.CONIM_ITS ---
Providers/Reason For Consult Consulting Physician/Specialty*: Dr. Aguilar, cardiology Reason for Consult*: Presyncopal episodes and RV dilation Attending Physician: Juan José Cantu MD Primary Care Provider: Matt Reyes DO History of Present Illness History of Present Illness Lily Vasquez is a 25 year old female (7-year-old girl full-term and 4-year-old boy full-term) without any known prior cardiac history presented to the ER with complaint of near syncopal episode and left hand tingling. Patient has been having episodes of dizziness and near syncope on and off for last several years. Yesterday while sitting in chair she felt lightheaded and some slowness/inability to move fingers of her left hand. No weakness.She has also had 2 years history of dyspnea on exertion mostly noticed by her while walking up a flight of steps (12-13 steps) to second level of her house where her children's bedrooms are. Her shortness of breath progressively has worsened in the timeframe. She has occasional palpitations while she was but more recently she noticed several skipped beats without any associated symptoms several times per day. Episodes of dizziness and skipped beats do not correlate. She wore a 24-hour Holter monitor while she was that did not reveal anything. She also has past medical history of migraine since she was in high school. She has a [id number] history of smoking and has quit smoking now. Her oxygen saturation at baseline is about 95% per patient and yesterday when she stood up in the ER to use bedside commode her oxygen saturation dropped to 83% This recovered on laying back to rest. There were some EKG changes and echocardiogram was done stat. CT angiogram of chest was done that showed dilated main pulmonary artery as well as right and left branches were dilated. Normal pulmonary venous drainage. Echocardiogram showed dilated right ventricle with decreased right ventricular systolic. Dilated pulmonary artery. Myxomatous thickening of mitral valve with mild bileaflet prolapse and mild to moderate mitral valve regurgitation. I have been asked to assist in evaluating further management. She is on vaccinated for COVID-19 and rapid Covid test was negative. She had COVID-19 infection back in March 2020. She also tells me she has 2 great aunts (sisters of her paternal grandmother) who have history of PDA repaired at 2 years and 21 years respectively. Review of Systems General: Reports: 10 or more systems reviewed and unremarkable except in HPI and below Const: Denies: fever(s), chills or body aches Eyes: Denies: blurry vision ENMT: Denies: throat pain Card: Reports: palpitations and irregular heart rhythm; Denies: chest pain, edema, swelling of feet/ankles, lightheadedness, pre- syncope, dyspnea on exertion or orthopnea Resp: Reports: dyspnea; Denies: productive cough, non-productive cough, wheezing, hemoptysis or chest congestion GI: Denies: abdominal pain, nausea, vomiting, hematemesis, coffee ground e mesis, dysphagia, heartburn, diarrhea, constipation, GI cramping, change in stool character, hematochezia or melena : Denies: flank pain, difficulty voiding, dysuria, urinary frequency, urinary urgency, urinary hesitancy or hematuria Musc: Denies: neck pain, back pain, extremity pain, joint swelling, joint warmth or deformity Neuro: Reports: dizziness; Denies: headache(s), numbness in extremities, weakness in extremities, difficulty walking, frequent falls, vertigo, behavioral changes, Slurred speech present or seizure-like activity Psych: Denies: anxiety, depression, suicidal ideation or homicidal ideation Endo: Denies: polyuria, polydipsia or tired all the time Cameron/Lymph: Denies: easy bruising or easy bleeding Meds/Allergies Home Medications and Allergies Home Medications Medication Instructions Recorded Confirmed Last Taken Type No Known Home Medications 02/09/21 02/09/21 Unknown History Allergies Allergy/AdvReac Type Severity Reaction Status Date / Time No Known Allergies Allergy Verified 11/15/20 12:51 PFSH Acute PFSH: Medical History Acute depression BMI 25.0-25.9,adult Dysmenorrhea, unspecified Exposure to COVID-19 virus mar 2020 Flu-like symptoms Gastroenteritis Generalized anxiety disorder History of ovarian cyst PMS (premenstrual syndrome) Sinusitis, acute frontal Tiredness Surgical History History of tonsillectomy Family History Grandmother Cancer Paternal -- stomach and skin Grandfather Hyperlipidemia Paternal Hypertension Paternal Mother Ovarian cyst Denies family history of Diabetes Clotting disorder Chronic kidney disease (CKD) Bleeding disorder Thyroid disease Stroke Female Reproductive History: Date of last menstrual period: 01/29/21 Vitals/I&O/Wt Last Vital Signs Temp 97.7 F 02/10/21 01:03 Pulse 69 02/10/21 06:00 Resp 18 02/10/21 02:40 BP 107/76 02/10/21 02:40 Pulse Ox 94 02/10/21 02:40 Weight last 48 hrs Weight 134 lb Weight 130 lb Physical Exam Narrative: EXAM NARRATIVE: GENERAL: Averagely built and averagely nourished in no acute distress HEENT: Extraocular movement intact. Pupils equal round reactive to light. No pallor or icterus. NECK: No JVD. No carotid bruit. CARDIOVASCULAR SYSTEM: S1-S2 regular. Loud P2. No S3 or S4 present. No murmurs appreciated RESPIRATORY SYSTEM: Chest clear to auscultation. No wheezes rhonchi or rubs heard. No use of accessory muscles. ABDOMEN: Soft, nontender and nondistended. Normal bowel sounds present. EXTREMITIES: No cyanosis or clubbing. No edema. VASCULAR TECH: Patient is alert oriented ?3. No focal neurological deficits. SKIN: Normal turgor and temperature. PSYCH: Normal insight and judgment. A&P Assessment and plan (1) Pre-syncope: No recurrent spells. Patient was walked around the room as well as oxygen saturation was noted with position changes. There was no desaturation. Patient has symptoms of tiredness, fatigue, dizziness and exertional dyspnea as well as on and off palpitations that has been progressively worsening over the last several months. Echocardiogram findings of myxomatous mitral valve with bileaflet mitral valve prolapse and at least mild mitral regurgitation, dilated main pulmonary artery as well as dilated right ventricle with decreased right ventricular systolic function on echocardiogram. CT chest showing dilated main pulmonary artery as well as right and left pulmonary branches. CT chest images were reviewed by me as well as were discussed with our radiologist and pulmonary veins seems to be draining in left atrium with no anomalous pulmonary drainage. -Differentials at this point seem to be pulmonary arterial hypertension vs intracardiac shunt (undiagnosed ASD/large PFO and ?PDA; given family history however was not seen on CTA chest). - patient will require further work-up DIMPLE, left and right cardiac catheterization +/-cardiac CTA. -This was discussed in detail with the patient on multiple occasions by me as well as patient's attending physician Dr. Cantu. I explained to her procedure for DIMPLE her concerns of possibly requiring intubation given similar history with her sister were addressed. The need for initiating patient's work-up sooner than later was discussed with her as well. Risks and benefits of trans esophageal echocardiogram including the need for Covid testing was discussed with her. Dr. Cantu also had a family meeting with the patient and her . - Patient seems to be unsure as to whether or not she would like to proceed with further testing at [facility]. -She initially declined Covid PCR and eventually agreed for it late afternoon. 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 Please feel free to call with questions or concerns. Consult Attestations Medical Necessity Statement: Patient needs hospital stay for further work-up of presyncope Time Spent in Patient Care: Greater than 35 minutes (>than 50% of time spent in counselling and/or direct pt care on unit) . Coding Level of Care Code Acute Manager Med Surg for Di [facility] Diagnoses Pre-syncope R55 Myxomatous mitral valve regurgitation I34.0 Right ventricular dysfunction I51.9 Mitral valve prolapse I34.1 Dilatation of pulmonic artery I28.8 Generalized anxiety disorder F41.1
--- NOTE | 2021-02-10 21:30 | P.PN_ITS ---
Subjective Subjective: Interval history: Patient was seen and examined this morning,deny any palpitation,sob at rest,chest pain. Medications: Reviewed: Yes Vitals/I&O/Wt Last Vital Signs Temp 97.7 F 02/10/21 20:00 Pulse 89 02/10/21 20:00 Resp 17 02/10/21 20:00 BP 109/75 02/10/21 20:00 Pulse Ox 93 02/10/21 20:00 02/10/21 02/10/21 02/10/21 06:59 14:59 22:59 Intake Total 240 / 240 Balance 240 / 240 Weight last 48 hrs Weight 60.781 kg Weight 58.967 kg Physical Exam Const: COMMON NORMALS: patient oriented x3 HENMT: COMMON NORMALS: normocephalic, atraumatic, hearing grossly normal bilaterally and external ears normal HEAD & SCALP: normocephalic and atraumatic EXTERNAL EAR: Yes external ears normal Eye: COMMON NORMALS: no scleral icterus GENERAL EYE: appearance normal, both eyes and all related structures Chest: COMMONS NORMALS: normal inspection of the chest and normal palpation of entire chest wall CHEST: Yes Symmetrical chest wall rise Resp: COMMON NORMALS: normal respiratory effort, No retractions, No use of accessory muscles and clear to auscultation bilaterally EFFORT & INSPECTION: Yes symmetric chest movement AUSCULTATION: clear to auscultation bilaterally Cardio: COMMON NORMALS: regular rate, regular rhythm, S1 normal heart sound present, S2 normal heart sound present, No gallops present (Cardio), No murmurs present (Cardio), No rub (Cardio) and Peripheral pulses 2+ throughout RATE: regular rate RHYTHM: regular rhythm HEART SOUNDS: S1 normal heart sound present and S2 normal heart sound present PERIPHERAL PULSES: Peripheral pulses 2+ throughout GI: COMMON NORMALS: Normal to inspection, nondistended, normoactive bowel sounds present, Soft to palpation, non-tender, No hepatosplenomegaly present and no masses AUSCULTATION: Yes normoactive bowel sounds PALPATION: Yes Soft to palpation and Yes No hepatosplenomegaly present RECTAL EXAM: deferred Extremity: COMMON NORMALS: no clubbing, cyanosis or edema and no pedal edema Neuro: COMMON NORMALS: patient oriented x3 Data : 02/09/21 13:49 02/09/21 13:49 A&P Assessment and plan (1) Myxomatous mitral valve regurgitation: Status: Acute (2) Mitral valve prolapse: Status: Acute (3) Right ventricular dysfunction: Status: Acute (4) Pre-syncope: negative Ct head Status: Acute Additional A&P Information Patient presenting with presyncope, palpitations, progressively increasing dyspnea with echocardiographic findings of myxomatous mitral valve regurgitation, bileaflet mitral valve prolapse and right ventricular dysfunction. Transient oxygenation dropped to 83% with exertion, saturating 94% on room air currently. Awaiting DIMPLE Follow COVID PCR,RAPID Negative Appreciate Cardiology Attestations Medical Necessity Statement*: Patient needs to be in hospital for DIMPLE. Coding Level of Care Code Acute Chief Radiation Therapist for [facility] Fwd Diagnoses Myxomatous mitral valve regurgitation I34.0 Mitral valve prolapse I34.1 Right ventricular dysfunction I51.9 Pre-syncope R55
[2021-02-11] VITALS (8 sets, daily range): BP systolic 93–120; BP diastolic 60–77; PULSE 68–95; RESP 16–18; TEMP 36.4–36.8; O2SAT 92–95
--- NOTE | 2021-02-11 12:30 | PC.NURSE ---
During patient rounding, patient stated that she had requested transfer, however was told that she couldn't be transferred d/t it being inappropriate . I informed her I would speak with Dr. Cantu, however he came in prior to me leaving and following up with him. During his visit with patient, he reiterated to the patient that a transfer would be inappropriate at this time and that he could d/c her and she could f/u with the provider of her choice outpatient for her DIMPLE and cardiology referral. Patient states that she verbalizes understanding and will consider her options and f/u with physician.
--- NOTE | 2021-02-11 13:12 | PM.PN ---
Subjective Subjective: Interval history: No overnight acute events. Medications: Reviewed: Yes Medication Review Details: Current Medications Acetaminophen (Acetaminophen 325 Mg Tablet) 650 mg PO Q6H PRN PRN Reason: Mild/Mod Pain Or Temp >/= 101 Ondansetron HCl (Ondansetron 2 Mg/Ml Sdv 2 Ml) 4 mg IVP Q8H PRN PRN Reason: vomiting, or N/V if npo Vitals/I&O/Wt Last Vital Signs Temp 98.2 F 02/11/21 12:00 Pulse 86 02/11/21 12:00 Resp 18 02/11/21 12:00 BP 103/70 02/11/21 12:00 Pulse Ox 92 02/11/21 12:00 02/10/21 02/11/21 02/11/21 22:59 06:59 14:59 Intake Total 240 / 240 480 / 480 Balance 240 / 240 480 / 480 Weight last 48 hrs Weight 134 lb Weight 130 lb Physical Exam Narrative: EXAM NARRATIVE: GENERAL: Averagely built and averagely nourished in no acute distress HEENT: Extraocular movement intact. Pupils equal round reactive to light. No pallor or icterus. NECK: No JVD. No carotid bruit. CARDIOVASCULAR SYSTEM: S1-S2 regular. Loud P2. No S3 or S4 present. No murmurs appreciated RESPIRATORY SYSTEM: Chest clear to auscultation. No wheezes rhonchi or rubs heard. No use of accessory muscles. ABDOMEN: Soft, nontender and nondistended. Normal bowel sounds present. EXTREMITIES: No cyanosis or clubbing. No edema. BUILDING SURVEYOR: Patient is alert oriented ?3. No focal neurological deficits. SKIN: Normal turgor and temperature. PSYCH: Normal insight and judgment. Data : 02/09/21 13:49 02/09/21 13:49 A&P Assessment and plan (1) Pre-syncope: No recurrent spells. Patient was walked around the room as well as oxygen saturation was noted with position changes. There was no desaturation. Patient has symptoms of tiredness, fatigue, dizziness and exertional dyspnea as well as on and off palpitations that has been progressively worsening over the last several months. Echocardiogram findings of myxomatous mitral valve with bileaflet mitral valve prolapse and at least mild mitral regurgitation, dilated main pulmonary artery as well as dilated right ventricle with decreased right ventricular systolic function on echocardiogram. CT chest showing dilated main pulmonary artery as well as right and left pulmonary branches. CT chest images were reviewed by me as well as were discussed with our radiologist and pulmonary veins seems to be draining in left atrium with no anomalous pulmonary drainage. -Differentials at this point seem to be pulmonary arterial hypertension vs intracardiac shunt (undiagnosed ASD/large PFO and ?PDA; given family history however was not seen on CTA chest). - patient will require further work-up DIMPLE, left and right cardiac catheterization +/-cardiac CTA. -This was discussed in detail with the patient on multiple occasions by me as well as patient's attending physician Dr. Cantu. I explained to her procedure for DIMPLE her concerns of possibly requiring intubation given similar history with her sister were addressed. The need for initiating patient's work-up sooner than later was discussed with her as well. Risks and benefits of transesophageal echocardiogram including the need for Covid testing was discussed with her. Dr. Cantu also had a family meeting with the patient and her . - Patient seems to be unsure as to whether or not she would like to proceed with further testing at [facility]. -She initially declined Covid PCR and eventually agreed for it late afternoon. -Covid PCR is still pending and patient after initially agreeing to proceeding with DIMPLE (once the PCR is back) has changed her mind. It sounds like one of the reasons for change in her decision is poor coordination among ancillary staff. -In case patient is agreeable to proceed with DIMPLE, I would be happy to assist. Otherwise, she is advised to follow-up as soon as possible at the hospital of her choice for further work-up. 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 Please feel free to call with questions or concerns. Attestations Medical Necessity Statement*: As per primary team Time Spent in Patient Care: 16 - 35 minutes (>than 50% of time spent in counselling and/or direct pt care on unit). Coding Level of Care Code Acute Armored Machine Operator for Di Garcia Diagnoses Pre-syncope R55 Myxomatous mitral valve regurgitation I34.0 Right ventricular dysfunction I51.9 Mitral valve prolapse I34.1 Dilatation of pulmonic artery I28.8 Generalized anxiety disorder F41.1
[2021-02-11 15:22] LABS: Coronavirus Test Green County Not Detected
--- NOTE | 2021-02-11 23:01 | PC.NURSE ---
DR HERMAN NOTIFIED OF PT ANXIETY ABOUT UPCOMING PROCEDURE. PT REQUESTING SOMETHING TO HELP. TELEPHONE ORDER FOR XANAX 0.25MG PO ONCE. ORDERS READ BACK
[2021-02-11] MEDS: ALPRAZolam 0.5 mg Tablet 0.25 MG PO (23:12)
--- NOTE | 2021-02-11 23:54 | PM.PN ---
Subjective Subjective: Interval history: No overnight acute events. Medications: Reviewed: Yes Medication Review Details: Current Medications Acetaminophen (Acetaminophen 325 Mg Tablet) 650 mg PO Q6H PRN PRN Reason: Mild/Mod Pain Or Temp >/= 101 Ondansetron HCl (Ondansetron 2 Mg/Ml Sdv 2 Ml) 4 mg IVP Q8H PRN PRN Reason: vomiting, or N/V if npo Vitals/I&O/Wt Last Vital Signs Temp 97.6 F 02/11/21 23:49 Pulse 95 02/11/21 23:49 Resp 18 02/11/21 23:49 BP 115/77 02/11/21 23:49 Pulse Ox 94 02/11/21 23:49 02/11/21 02/11/21 02/12/21 14:59 22:59 06:59 Intake Total 480 / 480 480 / 960 Balance 480 / 480 480 / 960 Weight last 48 hrs Weight 60.781 kg Physical Exam Const: COMMON NORMALS: patient oriented x3 HENMT: COMMON NORMALS: normocephalic, atraumatic, hearing grossly normal bilaterally and external ears normal HEAD & SCALP: normocephalic and atraumatic EXTERNAL EAR: Yes external ears normal Eye: COMMON NORMALS: no scleral icterus GENERAL EYE: appearance normal, both eyes and all related structures Chest: COMMONS NORMALS: normal inspection of the chest and normal palpation of entire chest wall CHEST: Yes Symmetrical chest wall rise Resp: COMMON NORMALS: normal respiratory effort, No retractions, No use of accessory muscles and clear to auscultation bilaterally EFFORT & INSPECTION: Yes symmetric chest movement AUSCULTATION: clear to auscultation bilaterally Cardio: COMMON NORMALS: regular rate, regular rhythm, S1 normal heart sound present, S2 normal heart sound present, No gallops present (Cardio), No murmurs present (Cardio), No rub (Cardio) and Peripheral pulses 2+ throughout RATE: regular rate RHYTHM: regular rhythm HEART SOUNDS: S1 normal heart sound present and S2 normal heart sound present PERIPHERAL PULSES: Peripheral pulses 2+ throughout GI: COMMON NORMALS: Normal to inspection, nondistended, normoactive bowel sounds present, Soft to palpation, non-tender, No hepatosplenomegaly present and no masses AUSCULTATION: Yes normoactive bowel sounds PALPATION: Yes Soft to palpation and Yes No hepatosplenomegaly present RECTAL EXAM: deferred Extremity: COMMON NORMALS: no clubbing, cyanosis or edema and no pedal edema Neuro: COMMON NORMALS: patient oriented x3 Data : 02/09/21 13:49 02/09/21 13:49 A&P Assessment and plan (1) Myxomatous mitral valve regurgitation: Status: Acute (2) Mitral valve prolapse: Status: Acute (3) Right ventricular dysfunction: Status: Acute (4) Pre-syncope: negative Ct head Status: Acute Additional A&P Information Patient presenting with presyncope, palpitations, progressively increasing dyspnea with echocardiographic findings of myxomatous mitral valve regurgitation, bileaflet mitral valve prolapse and right ventricular dysfunction. Transient oxygenation dropped to 83% with exertion, saturating 94% on room air currently. Awaiting DIMPLE Follow COVID PCR,RAPID Negative Appreciate Cardiology Attestations Medical Necessity Statement*: Patient needs to be in hospital for the management R/V dysfunction awaiting DIMPLE Coding Level of Care Code Acute Mill Crane Operator for g Fwd Diagnoses Myxomatous mitral valve regurgitation I34.0 Mitral valve prolapse I34.1 Right ventricular dysfunction I51.9 Pre-syncope R55
[2021-02-12 03:35] VITALS: BP 114/74; PULSE 86; RESP 14; TEMP 36.4; O2SAT 92
[2021-02-12 05:37] LABS: Basophils % 0.6 %; Eosinophils # 0.2 10^3/uL (0.0-0.8); Eosinophils % 3.3 %; Hematocrit 44.5 % (37.0-47.0); Hemoglobin 14.9 g/dL (11.5-15.3); Lymphocytes # 2.8 10^3/uL (0.8-4.8); Lymphocytes % 39.7 %; Mean Corpuscular HGB Conc 33.5 g/dL (30.0-36.0); Mean Corpuscular Hemoglobin 30.7 pg (28.0-34.0); Mean Corpuscular Volume 91.6 fl (81-99); Mean Platelet Volume 11.6 fL (7.4-10.4); Monocytes # 0.4 10^3/uL (0.2-0.9); Monocytes % 6.2 %; Neutrophils # 3.45 10^3/uL (1.8-7.7); Neutrophils % 49.8 %; Nucleated Red Blood Cells % 0 %; Platelet Count 175 10^3/cmm (130-400); Red Blood Count 4.86 10^6/uL (4.1-5.3); Red Cell Distribution Width 11.7 % (12.1-15.1); White Blood Count 6.9 10^3/uL (4.0-10.0)
[2021-02-12 05:52] LABS: Anion Gap 14.9 (5-19); Blood Urea Nitrogen 10 mg/dL (6-20); Calcium 8.8 mg/dL (8.5-10.5); Carbon Dioxide 22 mmol/L (22-29); Chloride 102 mmol/L (98-107); Glomerular Filtration Rate 119.9 mL/min (90-130); Glucose 76 mg/dL (65-115); Osmolality Calculated 278 mOsm/kg (285-295); Potassium 3.9 mmol/L (3.5-5.1); Sodium 135 mmol/L (136-145)
[2021-02-12 07:52] VITALS: BP 102/72; PULSE 89; RESP 18; TEMP 36.6; O2SAT 93
--- NOTE | 2021-02-12 11:49 | P.PN_ITS ---
Subjective Subjective: Interval history: No overnight acute events. Plan is to proceed with DIMPLE today. Medications: Reviewed: Yes Medication Review Details: Current Medications Acetaminophen (Acetaminophen 325 Mg Tablet) 650 mg PO Q6H PRN PRN Reason: Mild/Mod Pain Or Temp >/= 101 Ondansetron HCl (Ondansetron 2 Mg/Ml Sdv 2 Ml) 4 mg IVP Q8H PRN PRN Reason: vomiting, or N/V if npo Vitals/I&O/Wt Last Vital Signs Temp 97.9 F 02/12/21 07:52 Pulse 89 02/12/21 07:52 Resp 18 02/12/21 07:52 BP 102/72 02/12/21 07:52 Pulse Ox 93 02/12/21 07:52 02/11/21 02/12/21 02/12/21 22:59 06:59 14:59 Intake Total 480 / 960 Balance 480 / 960 Physical Exam Narrative: EXAM NARRATIVE: GENERAL: Averagely built and averagely nourished in no acute distress HEENT: Extraocular movement intact. Pupils equal round reactive to light. No p allor or icterus. NECK: No JVD. No carotid bruit. CARDIOVASCULAR SYSTEM: S1-S2 regular. Loud P2. No S3 or S4 present. No murmurs appreciated RESPIRATORY SYSTEM: Chest clear to auscultation. No wheezes rhonchi or rubs heard. No use of accessory muscles. ABDOMEN: Soft, nontender and nondistended. Normal bowel sounds present. EXTREMITIES: No cyanosis or clubbing. No edema. PUBLIC HEALTH WORKER: Patient is alert oriented ?3. No focal neurological deficits. SKIN: Normal turgor and temperature. PSYCH: Normal insight and judgment. Data : 02/12/21 05:07 02/12/21 05:07 A&P Assessment and plan (1) Pre-syncope: No recurrent spells. Patient was walked around the room as well as oxygen saturation was noted with position changes. There was no desaturation. Patient has symptoms of tiredness, fatigue, dizziness and exertional dyspnea as well as on and off palpitations that has been progressively worsening over the last several months. Echocardiogram findings of myxomatous mitral valve with bileaflet mitral valve prolapse and at least mild mitral regurgitation, dilated main pulmonary artery as well as dilated right ventricle with decreased right ventricular systolic function on echocardiogram. CT chest showing dilated main pulmonary artery as well as right and left pulmonary branches. CT chest images were reviewed by me as well as were discussed with our radiologist and pulmonary veins seems to be draining in left atrium with no anomalous pulmonary drainage. -Differentials at this point seem to be pulmonary arterial hypertension vs intracardiac shunt (undiagnosed ASD/large PFO and ?PDA; given family history however was not seen on CTA chest and left ventricle and left atria are not dilated). - patient will require further work-up DIMPLE, left and right cardiac catheterization +/-cardiac CTA. -This was discussed in detail with the patient on multiple occasions by me as well as patient's attending physician Dr. Cantu. I explained to her procedure for DIMPLE her concerns of possibly requiring intubation given similar history with her sister were addressed. The need for initiating patient's work-up sooner than later was discussed with her as well. Risks and benefits of transesophagea l echocardiogram including the need for Covid testing was discussed with her. Dr. Cantu also had a family meeting with the patient and her Serafin. - COVID PCR negative. Plan is to proceed with DIMPLE later today. Status: Resolved (2) Myxomatous mitral valve regurgitation: Status: Acute (3) Right ventricular dysfunction: Status: Acute (4) Mitral valve prolapse: Status: Acute (5) Dilatation of pulmonic artery: Status: Acute (6) Generalized anxiety disorder: Status: Acute Additional A&P Information Thank you for allowing me to participate in patient's care. Please feel free to call with questions or concerns. Attestations Medical Necessity Statement*: Needs hospital stay for further work-up of dizziness, palpitations, dilated pulmonary artery and RV dysfunction Time Spent in Patient Care: 16 - 35 minutes (>than 50% of time spent in counselling and/or direct pt care on unit) . Coding Level of Care Code Acute Coagulating Bath Operator for Janetteg Fwd Diagnoses Pre-syncope R55 Myxomatous mitral valve regurgitation I34.0 Right ventricular dysfunction I51.9 Mitral valve prolapse I34.1 Dilatation of pulmonic artery I28.8 Generalized anxiety disorder F41.1
[2021-02-12 11:52] VITALS: BP 106/77; PULSE 106; RESP 20; TEMP 36.3; O2SAT 94
[2021-02-12] MEDS: sodium chloride 0.9% 1,000 ML 30 ML IV (11:53)
--- NOTE | 2021-02-12 12:00 | USCV_ITS ---
Lily Vasquez Age: 25 Gender: F : 1995 Exam Date: 02/12/2021 11:54 Ordering Phys: Jeannine Aguilar MD ([email or web address]) Technologist: Carlita Prajapati [place] [facility] [place] Indication: Mitral valve prolaspe, RV dilation, r/o ASD BP: 106 / 70 HR: 142 Rhythm: Sinus Technical Quality: Good MEASUREMENTS (Male / Female) Normal Values DOPPLER AV Peak Velocity 113.0 cm/s LVOT Peak Velocity 72.0 cm/s Medications Patient given IV sedation by anesthesia service, for details please refer to the anesthesia report. Complications Patient tolerated procedure well. No carrol-procedural complications. Proc. Components The patient was brought to the DIMPLE examination room in a fasting state after obtaining an informed consent. The DIMPLE probe was passed into the posterior pharynx , mid-esophagus, distal esophagus, and gastric fundus. FINDINGS Left Ventricle Normal left ventricular size and systolic function with no regional wall motion abnormalities. Left ventricular ejection fraction is estimated at 60 %. Flattened septum in systole consistent with right ventricle pressure overload. Right Ventricle Mildly increased right ventricular size. Mildly decreased right ventricular systolic function. RVSP could not be calculated due to incomplete tricuspid regurgitation velocity profile. Right Atrium Mildly increased right atrial size. Left Atrium Normal left atrial size. LA Appendage Normal left atrial appendage. No thrombus visualized in the left atrial appendage. IA Septum Aneurysmal interatrial septum. Large patent foramen ovale. Wcofy-ay-orrk shunt seen at the atrial level by color and agitated saline study. (Qp/Qs ratio 0.86). Mitral Valve Mildly thickened mitral valve. No significant prolapse noted. No mitral valve stenosis. Mild mitral valve regurgitation. Aortic Valve Structurally normal trileaflet aortic valve. No aortic valve stenosis. No aortic valve regurgitation. Tricuspid Valve Structurally normal tricuspid valve. No tricuspid valve stenosis. Trace to mild tricuspid valve regurgitation. Pulmonic Valve Structurally normal pulmonic valve. No pulmonary valve stenosis. Trace pulmonary valve regurgitation. Dilated main pulmonary artery with anteroposterior diameter of 40 mm. Pericardium No pericardial effusion. Aorta Normal size aortic root and proximal ascending aorta. CONCLUSIONS 1. Normal left ventricular size and systolic function with no regional wall motion abnormalities. Left ventricular ejection fraction is estimated at 60 %. Flattened septum in systole consistent with right ventricle pressure overload. 2. Mildly increased right ventricular size. Mildly decreased right ventricular systolic function. 3. Mildly increased right atrial size. 4. Large patent foramen ovale. Eodwd-li-ifop shunt seen at the atrial level by color and agitated saline study. (Qp/Qs ratio 0.86). 5. Dilated main pulmonary artery with anteroposterior diameter of 40 mm. 6. Cardiac MRI /Cardiac CTA and right heart cathetarization is recommended for complete assessment. Jeannine Aguilar MD (Electronically Signed) Final Date: 25 February 2021 08:34 S
--- NOTE | 2021-02-12 12:17 | ANES.PREANE2 ---
Pre-Anesthetic Assessment Pre-Anesthetic Assessment: Height/Weight: Height 1.55 m Weight 60.781 kg Temp Pulse Resp BP Pulse Ox 97.4 F L 106 H 20 H 106/77 94 02/12/21 11:52 02/12/21 11:52 02/12/21 11:52 02/12/21 11:52 02/12/21 11:52 Proposed Procedure: Operation Date: 02/12/21 12:00 Proposed Procedures p DIMPLE(Not Applicable) - Jeannine Aguilar MD Was Beta Macrina taken within 24 hours: N/A Was Clonidine taken within 24 hours: N/A Social: Social History: Tobacco and No alcohol Exam: Pre-Anes Outpt Exam: alert, oriented x 3, clear to auscultation bilaterally and regular rate & rhythm Airway: Submandibular: WNL Cervical ROM: WNL MP: 2 Dentition: Full CV/HEM: Comments: MVP Neuropsych: Neuropsych: Anxiety Anesthetic Plan: ASA status: 2 Anesthesia: MAC Risk of > 500 ml blood loss (7ml/kg in children): No Meds/Allergies Current Medications: Current Medications Generic Name Dose Route Start Last Admin Trade Name Freq PRN Reason Stop Dose Admin Sodium Chloride 1,000 mls @ 30 ml s/hr 02/12/21 11:45 02/12/21 11:53 Sodium Chloride 0.9% IV 02/13/21 11:44 30 mls/hr .Q24H LORAINE Administration PFSH Anesthesia PFSH: Medical History Acute depression BMI 25.0-25.9,adult Dysmenorrhea, unspecified Exposure to COVID-19 virus mar 2020 Flu-like symptoms Gastroenteritis Generalized anxiety disorder History of ovarian cyst PMS (premenstrual syndrome) Sinusitis, acute frontal Tiredness Surgical History History of tonsillectomy Family History Grandmother Cancer Paternal -- stomach and skin Grandfather Hyperlipidemia Paternal Hypertension Paternal Mother Ovarian cyst Denies family history of Diabetes Clotting disorder Chronic kidney disease (CKD) Bleeding disorder Thyroid disease Stroke Female Reproductive History: Date of last menstrual period: 01/29/21 Data Anesthesia CBC & Chem 7: 02/12/21 05:07 02/12/21 05:07 Other Labs: Laboratory Results - last 48 hr 02/10/21 02/12/21 02/12/21 16:00 05:07 05:07 WBC 6.9 RBC 4.86 Hgb 14.9 Hct 44.5 MCV 91.6 MCH 30.7 MCHC 33.5 RDW 11.7 L Plt Count 175 MPV 11.6 H Neut % (Auto) 49.8 Lymph % (Auto) 39.7 [place] % (Auto) 6.2 Eos % (Auto) 3.3 Baso % (Auto) 0.6 Neut # (Auto) 3.45 Lymph # (Auto) 2.8 [place] # (Auto) 0.4 Eos # (Auto) 0.2 Baso # (Auto) 0.0 Nucleated RBC % (auto) 0 Nucleated RBCs # 0.0 Sodium 135 L Potassium 3.9 Chloride 102 Carbon Dioxide 22 Anion Gap 14.9 BUN 10 Creatinine 0.6 GFR Calculation 119.9 Glucose 76 Calculated Osmolality 278 L Calcium 8.8 Nasal/Oral COVID-19 PCR Not detected Cardiac Studies: Echocardiogram 02/09/21
[2021-02-12 13:11] VITALS: BP 98/54; PULSE 110; RESP 16; TEMP 36.1; O2SAT 93
[2021-02-12 13:27] VITALS: BP 96/54; PULSE 112; RESP 18; O2SAT 94
--- NOTE | 2021-02-12 13:28 | PM.PROC ---
Coding Level of Care Code Acute Exhaust Emissions Automotive Technician for Di Garcia
--- NOTE | 2021-02-12 14:09 | ANE.PACU2 ---
Inpatient post-anesthesia follow up: Airway intact: Yes Vital signs: Temperature 97.0 F Pulse Rate [Monito r] 104 Pulse Rate 112 Respiratory Rate 18 Blood Pressure [Le ft Arm] 128/84 Blood Pressure 96/54 Pulse Oximetry 94 Oxygen Delivery Me thod Simple Mask Oxygen Flow Rate 8 Fraction of Inspir ed Oxygen Hydration adequate: Yes Nausea and vomiting: No Pain level: 2 Mental status: Baseline
[2021-02-12 15:39] VITALS: BP 108/74; PULSE 89; RESP 18; TEMP 36.6; O2SAT 92
--- NOTE | 2021-02-12 15:46 | PM.DCS ---
Discharge Providers Date of Admission: 02/10/21 01:03 Date of Discharge: February 12, 2021 Attending Provider at Admission: Mari Martinez MD Attending Provider at Discharge: Juan José aCntu MD Primary Care Provider: Matt Reyes DO Diagnoses at Discharge Discharge Diagnosis (1) ASD (atrial septal defect): Status: Acute (2) Myxomatous mitral valve regurgitation: Status: Acute (3) Pre-syncope: (4) Right ventricular dysfunction: Status: Acute (5) Mitral valve prolapse: Status: Acute (6) Dilatation of pulmonic artery: Status: Acute (7) Generalized anxiety disorder: Status: Acute Reason for Visit Reason for Visit: NEAR SYNCOPAL EVENT @ NOON;L ARM LAGGING/COLDER Hospital Course Hospital Course 25 year old female without known significant past medical history presenting to the hospital today with an episode of presyncope at close to morning. Patient states that she was at rest, sitting in a chair when she started feeling slightly lightheaded and uncoordinated. Describes the episode as not being able to coordinate typing text messages on her phone, missing placing the phone on the counter, taking time to comprehend what is on her screen, vague left arm slowness/lagging. Symptoms resolved spontaneously. Denies any past similar episodes. However on asking specifically, endorses a past medical history of episodic palpitations over the past 2 years, most recently yesterday, progressive dyspnea which she experiences while attempting to climb 2 flight of stairs, walking less than usual distances. States that while these activities do not make her stop, she is attempting to catch her breath afterwards. In the ER today, she was noted to have an oxygen saturation dropped down to 83% while attempting to move from bed to bedside commode. This recovered on laying back to rest. At the time of my assessment patient is saturating 93% on room air while sitting in bed. EKG shows T wave inversion in leads V1 through V4, also present on leads dating back to 03/2020. Incidental finding on x-rays of 03/2020 had shown enlargement of the left main pulmonary artery, possibly correlating with pulmonary hypertension. CTA of the chest today is negative for any PE. 2D Echo moderately dilated right ventricle with at least moderately decreased right ventricular systolic function. Moderately thickened myxomatous appearing mitral valve. Bileaflet mitral valve prolapse. Mild to moderate mitral valve regurgitation. Patient denies being diagnosed with any valvular heart disease in the past. Does not have a history of COPD asthma or chronic respiratory illness. She is unvaccinated for COVID-19. She had COVID-19 infection in March 2020. She was admitted for presyncope, myxomatous mitral valve prolapse.Right ventricular dysfunction,Dilatation of pulmonic artery. During the hospital stay cardiology was on board CT had DIMPLE was done: Which showed small ASD. CT chest showing dilated main pulmonary artery as well as right and left pulmonary branches. CT chest images were reviewed pulmonary veins seems to be draining in left atrium with no anomalous pulmonary drainage. Patient denied any similar episode during the hospital stay, no rhythm abnormality noted on telemetry monitoring. Patient will continue to follow cardiology as an outpatient for cardiac CT and further work-up.Plan was to discharge her on aspirin, but she is allergic to aspirin, there is no pressing need to do aspirin desensitization. Patient responded well to the above medical management and was discharged in stable condition to home. Physical Exam Const: COMMON NORMALS: patient oriented x3 HENMT: COMMON NORMALS: normocephalic, atraumatic, hearing grossly normal bilaterally and external ears normal HEAD & SCALP: normocephalic and atraumatic EXTERNAL EAR: Yes external ears normal Eye: COMMON NORMALS: no scleral icterus GENERAL EYE: appearance normal, both eyes and all related structures Chest: COMMONS NORMALS: normal inspection of the chest and normal palpation of entire chest wall CHEST: Yes Symmetrical chest wall rise Resp: COMMON NORMALS: normal respiratory effort, No retractions, No use of accessory muscles and clear to auscultation bilaterally EFFORT & INSPECTION: Yes symmetric chest movement AUSCULTATION: clear to auscultation bilaterally Cardio: COMMON NORMALS: regular rate, regular rhythm, S1 normal heart sound present, S2 normal heart sound present, No gallops present (Cardio), No murmurs present (Cardio), No rub (Cardio) and Peripheral pulses 2+ throughout RATE: regular rate RHYTHM: regular rhythm HEART SOUNDS: S1 normal heart sound present and S2 normal heart sound present PERIPHERAL PULSES: Peripheral pulses 2+ throughout GI: COMMON NORMALS: Normal to inspection, nondistended, normoactive bowel sounds present, Soft to palpation, non-tender, No hepatosplenomegaly present and no masses AUSCULTATION: Yes normoactive bowel sounds PALPATION: Yes Soft to palpation and Yes No hepatosplenomegaly present RECTAL EXAM: deferred Extremity: COMMON NORMALS: no clubbing, cyanosis or edema and no pedal edema Neuro: COMMON NORMALS: patient oriented x3 Discharge Data Data Completed and Pending: Completed Studies During Hospitalization Category Date Time Status CT angio chest PE protcl [id number] Urge nt Cat Scan 02/09/21 15:[address] head wo con* 7 [id number] Stat Cat Scan 02/09/21 13:36 Completed CV. echo complete * [id number] Stat Ultrasound 02/09/21 19:16 Completed Pending at discharge Category Date Time Status Basic Metabolic P paul AM LABS Lab 02/13/21 04:00 Ordered Basic Metabolic P paul AM LABS Lab 02/14/21 04:00 Ordered Complete Blood Co unt w/Auto AM LABS Lab 02/13/21 04:00 Ordered Complete Blood Co unt w/Auto AM LABS Lab 02/14/21 04:00 Ordered CV. echo transeso phageal [id number] Rout ine Ultrasound 02/12/21 12:00 Taken Labs from last 24 hours 02/12/21 02/12/21 05:07 05:07 WBC 6.9 RBC 4.86 Hgb 14.9 Hct 44.5 MCV 91.6 MCH 30.7 MCHC 33.5 RDW 11.7 L Plt Count 175 MPV 11.6 H Neut % (Auto) 49.8 Lymph % (Auto) 39.7 Vigo % (Auto) 6.2 Eos % (Auto) 3.3 Baso % (Auto) 0.6 Neut # (Auto) 3.45 Lymph # (Auto) 2.8 [place]igo # (Auto) 0.4 Eos # (Auto) 0.2 Baso # (Auto) 0.0 Nucleated RBC % (a uto) 0 Nucleated RBCs # 0.0 Sodium 135 L Potassium 3.9 Chloride 102 Carbon Dioxide 22 Anion Gap 14.9 BUN 10 Creatinine 0.6 GFR Calculation 119.9 Glucose 76 Calculated Osmolal ity 278 L Calcium 8.8 Vitals: Last Vital Signs Temp 97.8 F 02/12/21 15:39 Pulse 89 02/12/21 15:39 Resp 18 02/12/21 15:39 BP 108/74 02/12/21 15:39 Pulse Ox 92 02/12/21 15:39 Discharge Plan Discharge Patient Disposition: Home Condition: Stable Discharge Orders: Discharge Order (Routine); Ordered 02/12/21 Ordered By: Juan José Cantu Referrals: Jeannine Aguilar MD [Physician] - 02/25/21 9:45 am Discharge Diet: Regular Discharge Activity: Resume usual activity Patient Instructions: Aspirin (By mouth), Right Heart Catheterization (DC), Atrial Septal Defect (DC), Opioid Safety Discharge Attestations Time Spent in Discharge Care*: less than 30 min Specific Discharge Activities: educating patient, educating and/or supporting family/caregiver, discussing with pcp/other providers, discussing with insurance case manager/social workers/dc planners, documenting/other paperwork and evaluating patient/reviewing data Status at Discharge: Cognitive status at discharge: cognitively intact, Behavioral status at discharge: cooperative, Functional status at discharge: independent ambulation Overall status at discharge: patient is back to baseline Quality Metrics Clinical Quality Measures During this hospital stay, did patient experience: None Coding Level of Care Code Acute Chg FW DC note Exam Comprehensive Diagnoses ASD (atrial septal defect) Q21.1 Myxomatous mitral valve regurgitation I34.0 Pre-syncope R55 Right ventricular dysfunction I51.9 Mitral valve prolapse I34.1 Dilatation of pulmonic artery I28.8 Generalized anxiety disorder F41.1
--- NOTE | 2021-02-12 18:25 | P.PCN_ITS ---
Procedure Note: Date of procedure: 02/12/21 Pre-procedure diagnosis: Dilated right ventricle, right atrium , dilated pulmonary artery Post- procedure diagnosis: other (Dilated right ventricle, right atrium , dilated pulmonary artery, ASD) Procedure: DIMPLE Procedure note Indication: Dilated right ventricle and right atria; dilated pulmonary artery Sedation: Propofol by anesthesia The patient was brought down to the GI lab. Procedure was explained to the patient in detail and informed consent was obtained. Timeout was called. After achieving adequate sedation, the probe was inserted on first attempt. No blood on the probe post procedure. Prelim report: Normal left ventricle systolic function. No left atrial or left atrial appendage mass or thrombus visualized. ASD identified with color Doppler and agitated saline study. Dilated pulmonary artery. Full report to follow. Patient tolerated the procedure well and initial recovery in labor contract analyst and subsequently was transferred to the floor for further management. Pathology: none sent Condition: stable Disposition: floor Coding Level of Care Code Acute Facilities Maintenance Worker for Di Garcia
--- NOTE | 2021-02-13 10:02 | PC.SOCIAL ---
discharge follow up call made. patient reports her throat is still sore from having scope. patient had no new medications at discharge. denies questions or concerns. aware of follow up appointment with dr. fuchs.
== END 2021-02-12 17:30 | disposition home or self-care (01) ==
LOC: ER 20:30 → MEDSURG 02-10 02:21
PROVIDERS: Emergency Medicine; Internal Medicine Cardiovascular Disease; Admitting Provider Student in an Organized Health Care Education/Training Program; Emergency Provider Emergency Medicine; PCP Family Medicine; Visit Provider Internal Medicine
PROC: (CPT 93312; principal; 2021-02-12 12:00)
DX: Q21.1 Atrial septal defect (principal); I34.0 Nonrheumatic mitral (valve) insufficiency; R55 Syncope and collapse; I51.9 Heart disease, unspecified; I34.1 Nonrheumatic mitral (valve) prolapse; I28.8 Other diseases of pulmonary vessels; F41.1 Generalized anxiety disorder; Z86.16 Personal history of COVID-19; Z87.891 Personal history of nicotine dependence; Z82.49 Family history of ischemic heart disease and other diseases of the circulatory system
CPT/HCPCS: 36415; 70450; 71275; 80048; 80053; 81001; 81025; 83880; 84443; 84484; 85025; 85378; 85610; 87426; 87635; 93005; 93306; 93312; 93320; 93325; 99285; G0378; J2704; J7030; Q9967

== ENCOUNTER 2021-03-07 20:10 | Emergency (ER) | payer MEDICAID, SELFPAY ==
[2021-03-07 20:23] VITALS: BP 138/89; PULSE 95; RESP 16; TEMP 36.5; O2SAT 95
--- NOTE | 2021-03-07 21:44 | XRR_ITS ---
PROCEDURE INFORMATION: Exam: XR Chest Exam date and time: 03/07/2021 9:44 PM Age: 25 years old Clinical indication: Sternal or substernal pain; Additional info: Cp TECHNIQUE: Imaging protocol: XR of the chest. Views: 1 view. COMPARISON: CT angio chest PE protcl [id number] 02/09/2021 4:09 PM FINDINGS: Lungs: Unremarkable. No consolidation. Pleural spaces: Unremarkable. No pleural effusion. No pneumothorax. Heart/Mediastinum: Unremarkable. No cardiomegaly. Bones/joints: Unremarkable. XR/XR chest 1V portable [id number] IMPRESSION: No acute disease. Radiation Dose CTDIVOL = (mGy): DLP = (mGy-cm)
--- NOTE | 2021-03-07 21:45 | W.ED.CHESTPA ---
Documented by User: LAURA Suarez 03/08/21 00:42 HPI - Chest Pain General: Chief Complaint: Chest Pain Stated Complaint: Chest Pains Time Seen by Provider: 03/07/21 21:40 History of Present Illness: HPI narrative: Patient describes epigastric central sternal chest pain intermittent over the last couple days more so with exertion. Patient does have chronic dyspnea. Patient is awaiting appointment on for her right heart cath. Has recently seen gray mixing operator. Please refer to gray mixing operator summary of problems. Patient denies any diaphoresis nausea vomiting or other related problems. Patient has history of reflux with her in the past. complaint: chest discomfort Onset (ago): day(s) Timing of current episode: episodic Prior episodes: Yes Onset: during exertion Pain location: substernal and epigastric Pain radiation: none Severity: mild Quality: aching Relieving factors: nothing Associated symptoms: Reports no associated symptoms; Deny dyspnea, fever(s), nausea or vomiting Review of Systems Const: Denies: fever(s), chills or body aches Eyes: Denies: change in vision or blurry vision ENMT: Denies: throat pain or nasal congestion Card: Reports: chest pain (Epigastric area) and dyspnea on exertion (Chronic) Resp: Denies: dyspnea, productive cough or non-productive cough GI: Denies: nausea or vomiting Musc: Denies: extremity pain Skin/Breast: Denies: rash Neuro: Denies: headache(s) Psych: Denies: anxiety or depression Cameron/Lymph: Denies: easy bruising PFSH ED PFSH: Medical History (Updated 03/07/21 @ 23:06 by LAURA Suarez) Acute depression ASD (atrial septal defect) BMI 25.0-25.9,adult Dysmenorrhea, unspecified Exposure to COVID-19 virus mar 2020 Flu-like symptoms Gastroenteritis Generalized anxiety disorder History of ovarian cyst PFO with atrial septal aneurysm PMS (premenstrual syndrome) Pre-syncope Sinusitis, acute frontal Tiredness Surgical History History of tonsillectomy Family History Grandmother Cancer Paternal -- stomach and skin Grandfather Hyperlipidemia Paternal Hypertension Paternal Mother Ovarian cyst Denies family history of Diabetes Clotting disorder Chronic kidney disease (CKD) Bleeding disorder Thyroid disease Stroke Social History Smoking and tobacco status: current every day smoker (Trying to quit - Uses vap ) Female Reproductive History: Date of last menstrual period: 01/29/21 Physical Exam Const: COMMON NORMALS: no acute distress, average body habitus and patient oriented x3 HENMT: COMMON NORMALS: normocephalic HEAD & SCALP: normal to inspection and normocephalic FACE & SINUS: normal facial exam Eye: COMMON NORMALS: conjunctivae normal GENERAL EYE: appearance normal, both eyes and all related structures CONJUNCTIVA: Yes conjunctivae normal Neck/C-Spine: COMMON NORMALS: no JVD Chest: COMMONS NORMALS: normal inspection of the chest Resp: COMMON NORMALS: normal respiratory effort and clear to auscultation bilaterally AUSCULTATION: clear to auscultation bilaterally Cardio: COMMON NORMALS: no JVD, regular rate and regular rhythm RATE: regular rate RHYTHM: regular rhythm GI: COMMON NORMALS: Normal to inspection, nondistended, normoactive bowel sounds present PALPATION: Yes Tenderness to palpation present (GI) (Epigastric) Extremity: COMMON NORMALS: normal to inspection and full ROM Neuro: COMMON NORMALS: patient oriented x3 Course Vital Signs: Vital signs: Vital Signs Temperature 97.7 F 03/07/21 20:23 Pulse Rate 74 03/07/21 23:25 Respiratory Rate 18 03/07/21 23:25 Blood Pressure 113/79 03/07/21 23:25 Pulse Oximetry 98 03/07/21 23:25 MDM - Chest Pain MDM Narrative: Medical decision making narrative: Patient responded well to medication here. Patient appears anxious discussed with and patient and they feel that anxiety effects her at all times. Patient encouraged follow-up primary care provider and continuing prescription if it is effective. Also encouraged change diet and take medication for reflux. Patient will keep appointment 18th for her appointment at [facility]. Patient with atypical chest pain generalized anxiety disorder and reflux. Discharge Plan Discharge Patient Disposition: Home Clinical Impression: GABY (generalized anxiety disorder), Atypical chest pain, Heartburn Condition: Stable Prescriptions: New Nexium 40 mg capsule,delayed release(DR/EC) 40 mg PO Q24H 28 Days Qty: 28 RF: 0 buspirone 5 mg tablet 5 mg PO BID Qty: 20 RF: 0 No Action clopidogrel [Plavix] 75 mg tablet 75 mg PO DAILY Qty: 30 RF: 3 metoprolol succinate 25 mg tablet extended release 24 hr 12.5 mg PO DAILY Qty: 15 RF: 2 Discharge Orders: Discharge ED (Routine); Ordered 03/07/21 Ordered By: Robel Hager Discharge Diet: Usual diet Discharge Activity: Resume usual activity Patient Instructions: Generalized Anxiety Disorder (ED), GERD (Gastroesophageal Reflux Disease) (ED) Activity Restrictions/Additional Instructions: Follow-up with medical provider as directed. Take medications as prescribed. Return to the ER or your medical provider if condition worsens. Please read and understand discharge instructions. If any questions ask please. Keep appointment on at [facility]. Coding Level of Care Code ED Farm Implement Mechanic for Chg Fwd Exam Comprehensive Documented by User: Yessenia Stout MD 03/08/21 20:15 HPI - Chest Pain General: Chief Complaint: Chest Pain Stated Complaint: Chest Pains Time Seen by Provider: 03/07/21 21:40 [facility] ED PFSH: Medical History (Updated 03/07/21 @ 23:06 by LAURA Suarez) Acute depression ASD (atrial septal defect) BMI 25.0-25.9,adult Dysmenorrhea, unspecified Exposure to COVID-19 virus mar 2020 Flu-like symptoms Gastroenteritis Generalized anxiety disorder History of ovarian cyst PFO with atrial septal aneurysm PMS (premenstrual syndrome) Pre-syncope Sinusitis, acute frontal Tiredness Surgical History History of tonsillectomy Family History Grandmother Cancer Paternal -- stomach and skin Grandfather Hyperlipidemia Paternal Hypertension Paternal Mother Ovarian cyst Denies family history of Diabetes Clotting disorder Chronic kidney disease (CKD) Bleeding disorder Thyroid disease Stroke Social History Smoking and tobacco status: current every day smoker (Trying to quit - Uses vap ) Course Vital Signs: Vital signs: Vital Signs Temperature 97.7 F 03/07/21 20:23 Pulse Rate 74 03/07/21 23:25 Respiratory Rate 18 03/07/21 23:25 Blood Pressure 113/79 03/07/21 23:25 Pulse Oximetry 98 03/07/21 23:25 Discharge Plan Discharge Patient Disposition: Home Clinical Impression: GABY (generalized anxiety disorder), Atypical chest pain, Heartburn Condition: Stable Prescriptions: New Nexium 40 mg capsule,delayed release(DR/EC) 40 mg PO Q24H 28 Days Qty: 28 RF: 0 buspirone 5 mg tablet 5 mg PO BID Qty: 20 RF: 0 No Action clopidogrel [Plavix] 75 mg tablet 75 mg PO DAILY Qty: 30 RF: 3 metoprolol succinate 25 mg tablet extended release 24 hr 12.5 mg PO DAILY Qty: 15 RF: 2 Discharge Orders: Discharge ED (Routine); Ordered 03/07/21 Ordered By: Robel Hager Discharge Diet: Usual diet Discharge Activity: Resume usual activity Patient Instructions: Generalized Anxiety Disorder (ED), GERD (Gastroesophageal Reflux Disease) (ED) Activity Restrictions/Additional Instructions: Follow-up with medical provider as directed. Take medications as prescribed. Return to the ER or your medical provider if condition worsens. Please read and understand discharge instructions. If any questions ask please. Keep appointment on at [facility]. Coding Level of Care Code ED Farm Implement Mechanic for Di Fwd Exam Comprehensive
[2021-03-07] MEDS: famotidine 20 mg Tablet 40 MG PO (22:04)
[2021-03-07] MEDS: LORazepam 0.5 mg Tablet PO (22:07)
[2021-03-07 22:09] VITALS: BP 138/84; PULSE 84; RESP 18; O2SAT 98
[2021-03-07 23:25] VITALS: BP 113/79; PULSE 74; RESP 18; O2SAT 98
== END 2021-03-07 23:20 | disposition home or self-care (01) ==
PROVIDERS: Emergency Provider Nurse Practitioner Family
DX: F41.1 Generalized anxiety disorder (principal); R07.89 Other chest pain; R12 Heartburn; Z79.02 Long term (current) use of antithrombotics/antiplatelets; F17.210 Nicotine dependence, cigarettes, uncomplicated
CPT/HCPCS: 71045; 99283

== ENCOUNTER → 2021-06-12 10:45 | Outpatient (BNVA) | payer MEDICAID, SELFPAY | PROVIDERS: PCP Nurse Practitioner Family; Visit Provider Counselor Professional | DX: F41.1 Generalized anxiety disorder (principal) | CPT/HCPCS: 90834 ==

== ENCOUNTER → 2021-06-25 10:45 | Outpatient (BNVA) | payer MEDICAID, SELFPAY | PROVIDERS: PCP Nurse Practitioner Family; Visit Provider Counselor Professional | DX: F41.1 Generalized anxiety disorder (principal) | CPT/HCPCS: 90834 ==

== ENCOUNTER → 2021-07-17 13:59 | Outpatient (BNVA) | payer OTHER, MEDICAID, SELFPAY | PROVIDERS: PCP Nurse Practitioner Family; Visit Provider Counselor Professional | DX: F41.1 Generalized anxiety disorder (principal) | CPT/HCPCS: 90791 ==

== ENCOUNTER → 2021-07-30 09:37 | Outpatient (BNVA) | payer MEDICAID, SELFPAY | PROVIDERS: PCP Nurse Practitioner Family; Visit Provider Internal Medicine Pulmonary Disease | DX: I27.21 Secondary pulmonary arterial hypertension (principal) | CPT/HCPCS: 81025 ==

== ENCOUNTER → 2021-08-05 08:48 | Outpatient (BNVA) | payer OTHER, MEDICAID, SELFPAY | PROVIDERS: PCP Nurse Practitioner Family; Visit Provider Psychiatry & Neurology Psychiatry | DX: F43.12 Post-traumatic stress disorder, chronic (principal); F41.1 Generalized anxiety disorder; F33.1 Major depressive disorder, recurrent, moderate | CPT/HCPCS: 99204 ==

== ENCOUNTER → 2021-09-29 11:05 | Outpatient (BNVA) | payer MEDICAID, SELFPAY | PROVIDERS: PCP Nurse Practitioner Family; Visit Provider Family Medicine | DX: I27.21 Secondary pulmonary arterial hypertension (principal) | CPT/HCPCS: 81025 ==

== ENCOUNTER → 2021-10-29 10:58 | Outpatient (BNVA) | payer MEDICAID, SELFPAY | PROVIDERS: PCP Nurse Practitioner Family; Visit Provider Internal Medicine Pulmonary Disease | DX: I28.8 Other diseases of pulmonary vessels (principal); Q21.1 Atrial septal defect | CPT/HCPCS: 81025 ==

== ENCOUNTER → 2021-12-19 12:03 | Outpatient (BNVA) | payer MEDICAID, SELFPAY | PROVIDERS: PCP Nurse Practitioner Family; Visit Provider Dermatology | DX: Q21.1 Atrial septal defect (principal) | CPT/HCPCS: 81025 ==

== ENCOUNTER → 2022-01-16 15:19 | Outpatient (BNVA) | payer MEDICAID, SELFPAY | PROVIDERS: PCP Nurse Practitioner Family; Visit Provider Dermatology | DX: I34.0 Nonrheumatic mitral (valve) insufficiency (principal) | CPT/HCPCS: 81025 ==

== ENCOUNTER → 2022-01-28 09:31 | Outpatient (BNVA) | payer MEDICAID, SELFPAY | PROVIDERS: PCP Nurse Practitioner Family; Visit Provider Internal Medicine Interventional Cardiology | DX: Q21.1 Atrial septal defect (principal) | CPT/HCPCS: 80048; 81003; 84703; 85025; 87086; 87426 ==

== ENCOUNTER → 2022-02-19 09:29 | Outpatient (BNVA) | payer MEDICAID, SELFPAY | PROVIDERS: PCP Nurse Practitioner Family; Visit Provider Internal Medicine Pulmonary Disease | DX: I27.20 Pulmonary hypertension, unspecified (principal) | CPT/HCPCS: 80048; 83880 ==

== ENCOUNTER → 2022-09-30 15:46 | Outpatient (BNVA) | payer MEDICAID, SELFPAY | PROVIDERS: PCP Nurse Practitioner Family; Visit Provider Nurse Practitioner Family | DX: N92.6 Irregular menstruation, unspecified (principal); R14.0 Abdominal distension (gaseous) | CPT/HCPCS: 74018; 81025 ==

== ENCOUNTER 2022-10-20 15:26 | Emergency (ER) | payer OTHER, MEDICAID, SELFPAY ==
--- NOTE | 2022-10-20 15:39 | ECG_ITS ---
[facility] Test Date: 2022-10-20 Pat Name: Lily Vasquez Department: Room: Gender: Female Booking Prizer: : 1995 Requested By: New [employer] Order Number: [id number] David MD: Leeanna Panchal M.D. Measurements Intervals [place] Rate: 89 P: 54 NM: 168 QRS: 81 QRSD: 87 T: 35 QT: 360 QTc: 439 Interpretive Statements SINUS RHYTHM POSSIBLE RIGHT VENTRICULAR CONDUCTION DELAY [RSR (QR) IN V1/V2] ST DEVIATION AND MODERATE T-WAVE ABNORMALITY, CONSIDER ANTERIOR ISCHEMIA [-0.1+ mV T-WAVE IN V3/V4] Compared to ECG 02/09/2021 17:54:14 T-wave abnormality now present Possible ischemia now present Sinus tachycardia no longer present Electronically Signed On 10-21-2022 22:15:38 CDT by Leeanna Panchal M.D. [email or web address]
[2022-10-20 15:42] VITALS: BP 113/75; PULSE 96; RESP 14; TEMP 36.8; O2SAT 97; BMI 27.3
--- NOTE | 2022-10-20 16:26 | XRR_ITS ---
PROCEDURE INFORMATION: Exam: XR Chest Exam date and time: 10/20/2022 4:31 PM Age: 26 years old Clinical indication: Pain; Angina pectoris; Additional info: Chest pain TECHNIQUE: Imaging protocol: Radiologic exam of the chest. Views: 1 view. COMPARISON: CR XR chest 1V portable [id number] 03/07/2021 9:55 PM FINDINGS: Lungs: Unremarkable. No consolidation. Pleural spaces: Unremarkable. No pleural effusion. No pneumothorax. Heart/Mediastinum: Unremarkable. No cardiomegaly. Bones/joints: Unremarkable. XR/XR chest 1V portable [id number] IMPRESSION: No acute findings.
[2022-10-20 16:42] VITALS: BP 107/70; PULSE 88; RESP 16; O2SAT 99
--- NOTE | 2022-10-20 16:54 | W.ED.ARRPALP ---
Documented by User: ROSA MARIA Malloy 10/20/22 17:00 HPI - Arrhythmia/Palpitations General: Chief Complaint: Arrhythmia/Palpitations Stated Complaint: heart beating hard/ bloody nose sent by PCP Time Seen by Provider: 10/20/22 16:25 Source: patient Mode of arrival: ambulatory Limitations: no limitations History of Present Illness: Patient is a 26-year-old female with a history of atrial septal defect-repaired by her pellet post inspector in [facility] in 2021 and pulmonary hypertension here for evaluation following an episode of her heart beating hard and epistaxis this morning around 6 AM. She states she awoke to her heart feeling like it was beating hard . She did not think too much about this stating I am always having issues with my heart but became slightly concerned when her nose started bleeding. She states she inserted a tissue and went back to sleep. She states when she woke up the tissue was about half saturated and nosebleed had subsided. She then contacted her cardiology team at [facility] who recommended she come to the ED for EKG and labs . Patient states she has been completely asymptomatic since incident this morning. MD complaint: rapid heart beat (not fast-states it was beating hard ) Onset (ago): hour(s) Duration: now resolved Severity: mild Context: occurred during rest (sleeping/awoke with symptoms) Associated symptoms: Reports other (nose bleed); Deny nausea, pre-syncope, syncope or vomiting Review of Systems ENMT: Reports: epistaxis (no hx of nose bleeds; no reoccurrence from this morning) Card: Reports: other (symptoms from this morning have resolved); Denies: chest pain, palpitations, irregular heart rhythm, edema, swelling of feet/ankles, lightheadedness, syncope, pre-syncope, dyspnea on exertion, orthopnea, leg pain with exertion or acrocyanosis Resp: Denies: dyspnea or chest congestion GI: Denies: abdominal pain, nausea or vomiting Musc: Denies: neck pain, back pain, extremity pain or joint pain Skin/Breast: Denies: rash Neuro: Denies: headache(s), numbness in extremities, weakness in extremities, sensory changes or dizziness PFS ED PFSH: Medical History Acute depression ASD (atrial septal defect) BMI 25.0-25.9,adult Dysmenorrhea, unspecified Exposure to COVID-19 virus mar 2020 Flu-like symptoms Gastroenteritis Generalized anxiety disorder History of ovarian cyst PFO with atrial septal aneurysm PMS (premenstrual syndrome) Pre-syncope Sinusitis, acute frontal Tiredness Surgical History History of tonsillectomy Family History Grandmother Cancer Paternal -- stomach and skin Grandfather Hyperlipidemia Paternal Hypertension Paternal Mother Ovarian cyst Denies family history of Diabetes Clotting disorder Chronic kidney disease (CKD) Bleeding disorder Thyroid disease Stroke Social History Smoking and tobacco status: current some day smoker e-cigarettes E-Cigarette Details: vaporizer device and with nicotine E-cig/vape details: Once a week Quit status (tobacco): has tried quititng Number of times tried to quit tobacco: 10 Second hand smoke exposure: No Alcohol intake: never Physical Exam Const: COMMON NORMALS: no acute distress, average body habitus, patient oriented x3, no limitations, healthy appearing, alert and well nourished ORIENTATION/CONSCIOUSNESS: Yes awake, Yes oriented to person, Yes oriented to place and Yes oriented to time HENMT: COMMON NORMALS: normocephalic, atraumatic, Normal external nose present and Normal nasal mucous membranes and turbinates present HEAD & SCALP: normal to inspection, normocephalic and atraumatic NOSE: Normal external nose present, Normal nares present, No nasal polyps present, Normal nasal mucous membranes and turbinates present, Normal septum present and No nasal discharge present; no Nasal discharge present and no Epistaxis present Resp: COMMON NORMALS: normal respiratory effort and clear to auscultation bilaterally AUSCULTATION: clear to auscultation bilaterally Cardio: COMMON NORMALS: regular rate and regular rhythm RATE: regular rate RHYTHM: regular rhythm Extremity: COMMON NORMALS: no clubbing, cyanosis or edema, no calf tenderness and no pedal edema GENERAL: Yes normal exam except as noted Neuro: JASE COMA SCALE: document GCS findings Jase coma scale eye opening: Spontaneous [place] coma scale verbal response: Orientated Jase coma scale motor response: Obey commands Jase coma scale total score: 15 COMMON NORMALS: patient oriented x3 SENSORIUM/ORIENTATION: Yes alert, Yes oriented to person, Yes oriented to place and Yes oriented to time Course Vital Signs: Vital signs: Vital Signs Temperature 98.3 F 10/20/22 15:42 Pulse Rate 80 10/20/22 18:47 Respiratory Rate 13 10/20/22 18:47 Blood Pressure 104/80 10/20/22 18:47 Pulse Oximetry 97 10/20/22 18:47 Oxygen Delivery Me thod Room Air 10/20/22 18:47 MDM - Arrhythmia/Palpitations Lab Data 10/20/22 16:52 10/20/22 16:52 Radiology Impressions Chest X-Ray 10/20/22 16:26 IMPRESSION: No acute findings. Laboratory Results WBC 6.4 10^3/uL (4.0-10.0) 10/20/22 16:52 RBC 4.65 10^6/uL (4.1-5.3) 10/20/22 16:52 Hgb 13.5 g/dL (11.5-15.3) 10/20/22 16:52 Hct 41.8 % (37.0-47.0) 10/20/22 16:52 MCV 89.9 fl (81-99) 10/20/22 16:52 MCH 29.0 pg (28.0-34.0) 10/20/22 16:52 MCHC 32.3 g/dL (30.0-36.0) 10/20/22 16:52 RDW 12.3 % (12.1-15.1) 10/20/22 16:52 Plt Count 202 10^3/cmm (130-400) 10/20/22 16:52 MPV 10.5 fL (7.4-10.4) H 10/20/22 16:52 Neut % (Auto) 47.9 % 10/20/22 16:52 Lymph % (Auto) 40.6 % 10/20/22 16:52 [place] % (Auto) 6.1 % 10/20/22 16:52 Eos % (Auto) 4.7 % 10/20/22 16:52 Baso % (Auto) 0.5 % 10/20/22 16:52 Neut # (Auto) 3.09 10^3/uL (1.8-7.7) 10/20/22 16:52 Lymph # (Auto) 2.6 10^3/uL (0.8-4.8) 10/20/22 16:52 [place] # (Auto) 0.4 10^3/uL (0.2-0.9) 10/20/22 16:52 Eos # (Auto) 0.3 10^3/uL (0.0-0.8) 10/20/22 16:52 Baso # (Auto) 0.0 10^3/uL (0.0-0.1) 10/20/22 16:52 Nucleated RBC % (auto) 0 % 10/20/22 16:52 Nucleated RBCs # 0.0 /100WBC 10/20/22 16:52 Sodium 141 mmol/L (136-145) 10/20/22 16:52 Potassium 3.9 mmol/L (3.5-5.1) 10/20/22 16:52 Chloride 106 mmol/L (98-107) 10/20/22 16:52 Carbon Dioxide 23 mmol/L (22-29) 10/20/22 16:52 Anion Gap 15.9 (5-19) 10/20/22 16:52 BUN 11 mg/dL (6-20) 10/20/22 16:52 Creatinine 0.5 mg/dL (0.5-0.9) 10/20/22 16:52 GFR Calculation 146.9 mL/min (90-130) H 10/20/22 16:52 Glucose 77 mg/dL (65-115) 10/20/22 16:52 Calculated Osmolality 290 mOsm/kg (285-295) 10/20/22 16:52 Calcium 8.8 mg/dL (8.5-10.5) 10/20/22 16:52 Total Bilirubin 0.2 mg/dL (0.15-1.2) 10/20/22 16:52 AST 11 U/L (0-32) 10/20/22 16:52 ALT 10 U/L (0-33) 10/20/22 16:52 Alkaline Phosphatase 69 U/L (35-105) 10/20/22 16:52 Troponin T Baseline 6 ng/L (0-10) 10/20/22 16:52 Troponin T 120 Minute 6.00 ng/L (0-10) 10/20/22 18:20 Delta Troponin T 0 ABS# (0-10) 10/20/22 18:20 NT-Pro-B Natriuret Pep 119 pg/mL (0-125) 10/20/22 16:52 Total Protein 6.9 g/dL (6.6-8.7) 10/20/22 16:52 Albumin 4.6 g/dL (3.5-5.2) 10/20/22 16:52 Globulin 2.3 g/dL (1.3-4.6) 10/20/22 16:52 HCG, Qual Negative (Negative) 10/20/22 16:52 EKG Data EKG 1: Other EKG comments: Chest X-Ray 10/20/22 16:26 IMPRESSION: No acute findings. Discharge Plan Discharge Patient Disposition: Home Clinical Impression: Heart palpitations Condition: Stable Prescriptions: No Action furosemide 20 mg tablet 20 mg PO DAILY diltiazem HCl 120 mg capsule,extended release 12 hr 120 mg PO DAILY ambrisentan 10 mg tablet 10 mg PO DAILY tadalafil (pulm. hypertension) 20 mg tablet 40 mg PO DAILY Rx Instructions: administer approximately 30min before sexual activity; do not use more than 1 dose per 24hrs aspirin [Adult Aspirin Regimen] 81 mg tablet,delayed release (DR/EC) 81 mg PO DAILY Discharge Orders: Discharge ED (Routine); Ordered 10/20/22 Ordered By: Ramses Ortega Referrals: Marilee Randall NP [Primary Care Provider] - Discharge Diet: Regular Discharge Activity: Increase activity as tolerated Patient Instructions: Heart Palpitations (DC) Activity Restrictions/Additional Instructions: Follow-up with pellet post inspector at your scheduled appointment on November 04. Continue taking all home medications as previously prescribed. Return to the ER or your medical provider if condition worsens. Please read and understand discharge instructions. Thank you for choosing [facility] for your healthcare needs today. Please realize this is an emergency room and that we are providing you with a medical screening exam and this may not be complete and all inclusive of all the testing and or work up that you may need to determine your ailment or severity of your illness. It is very important that you follow up as instructed or that you return to the Emergency Department should you have concerns or if your condition changes or worsens in any way. Sign Out Sign Out Data: Patient Sign Out occurred on 10/20/22 at 17:11. Patient's care was discussed, and care was transferred from to ROSA MARIA Felipe. Coding Level of Care Code ED Syrup Maker for Chg Fwd Documented by User: ROSA MARIA Felipe 10/21/22 00:26 HPI - Arrhythmia/Palpitations General: Chief Complaint: Arrhythmia/Palpitations Stated Complaint: heart beating hard/ bloody nose sent by PCP Time Seen by Provider: 10/20/22 16:25 PFSH ED PFSH: Medical History Acute depression ASD (atrial septal defect) BMI 25.0-25.9,adult Dysmenorrhea, unspecified Exposure to COVID-19 virus mar 2020 Flu-like symptoms Gastroenteritis Generalized anxiety disorder History of ovarian cyst PFO with atrial septal aneurysm PMS (premenstrual syndrome) Pre-syncope Sinusitis, acute frontal Tiredness Surgical History History of tonsillectomy Family History Grandmother Cancer Paternal -- stomach and skin Grandfather Hyperlipidemia Paternal Hypertension Paternal Mother Ovarian cyst Denies family history of Diabetes Clotting disorder Chronic kidney disease (CKD) Bleeding disorder Thyroid disease Stroke Social History Smoking and tobacco status: current some day smoker e-cigarettes E-Cigarette Details: vaporizer device and with nicotine E-cig/vape details: Once a week Quit status (tobacco): has tried quititng Number of times tried to quit tobacco: 10 Second hand smoke exposure: No Alcohol intake: never Physical Exam Neuro: JASE COMA SCALE: document GCS findings [place] coma scale total score: 15 Course Vital Signs: Vital signs: Vital Signs Temperature 98.3 F 10/20/22 15:42 Pulse Rate 80 10/20/22 18:47 Respiratory Rate 13 10/20/22 18:47 Blood Pressure 104/80 10/20/22 18:47 Pulse Oximetry 97 10/20/22 18:47 Oxygen Delivery Me thod Room Air 10/20/22 18:47 MDM - Arrhythmia/Palpitations Medical Decision Making I took over patient care from Regina Robbins physician registered nurse first assistant at 5 PM shift change. She performed the original history exam and ordered labs and imaging that was pending when handed off to me. I agree with the above assessment. Patient is a 26-year-old female with a history of atrial septal defect-repaired by her pellet post inspector in [facility] in 2021 and pulmonary hypertension here for evaluation following an episode of her heart beating hard and epistaxis this morning around 6 AM. She states she awoke to her heart feeling like it was beating hard . She did not think too much about this stating I am always having issues with my heart but became slightly concerned when her nose started bleeding. She states she inserted a tissue and went back to sleep. She states when she woke up the tissue was about half saturated and nosebleed had subsided. She then contacted her cardiology team at [facility] who recommended she come to the ED for EKG and labs . Patient states she has been completely asymptomatic since incident this morning. Vital stable. Exam is benign. CBC and CMP are unremarkable. BNP was normal at 119, troponin's were negative. EKG showed no acute findings. Chest x-ray showed no acute findings. Patient was still asymptomatic all throughout her stay here in the ED and had no other reoccurring episodes of palpitation. She was stable for discharge home diagnosed with heart palpitations. Patient has a follow-up appointment with her pellet post inspector in 2 weeks. Strict return ED precautions given. Patient understood and agreed with plan. Lab Data I reviewed the patient's lab results. 10/20/22 16:52 10/20/22 16:52 Radiology Impressions Chest X-Ray 10/20/22 16:26 IMPRESSION: No acute findings. Laboratory Results WBC 6.4 10^3/uL (4.0-10.0) 10/20/22 16:52 RBC 4.65 10^6/uL (4.1-5.3) 10/20/22 16:52 Hgb 13.5 g/dL (11.5-15.3) 10/20/22 16:52 Hct 41.8 % (37.0-47.0) 10/20/22 16:52 MCV 89.9 fl (81-99) 10/20/22 16:52 MCH 29.0 pg (28.0-34.0) 10/20/22 16:52 MCHC 32.3 g/dL (30.0-36.0) 10/20/22 16:52 RDW 12.3 % (12.1-15.1) 10/20/22 16:52 Plt Count 202 10^3/cmm (130-400) 10/20/22 16:52 MPV 10.5 fL (7.4-10.4) H 10/20/22 16:52 Neut % (Auto) 47.9 % 10/20/22 16:52 Lymph % (Auto) 40.6 % 10/20/22 16:52 [place] % (Auto) 6.1 % 10/20/22 16:52 Eos % (Auto) 4.7 % 10/20/22 16:52 Baso % (Auto) 0.5 % 10/20/22 16:52 Neut # (Auto) 3.09 10^3/uL (1.8-7.7) 10/20/22 16:52 Lymph # (Auto) 2.6 10^3/uL (0.8-4.8) 10/20/22 16:52 [place] # (Auto) 0.4 10^3/uL (0.2-0.9) 10/20/22 16:52 Eos # (Auto) 0.3 10^3/uL (0.0-0.8) 10/20/22 16:52 Baso # (Auto) 0.0 10^3/uL (0.0-0.1) 10/20/22 16:52 Nucleated RBC % (auto) 0 % 10/20/22 16:52 Nucleated RBCs # 0.0 /100WBC 10/20/22 16:52 Sodium 141 mmol/L (136-145) 10/20/22 16:52 Potassium 3.9 mmol/L (3.5-5.1) 10/20/22 16:52 Chloride 106 mmol/L (98-107) 10/20/22 16:52 Carbon Dioxide 23 mmol/L (22-29) 10/20/22 16:52 Anion Gap 15.9 (5-19) 10/20/22 16:52 BUN 11 mg/dL (6-20) 10/20/22 16:52 Creatinine 0.5 mg/dL (0.5-0.9) 10/20/22 16:52 GFR Calculation 146.9 mL/min (90-130) H 10/20/22 16:52 Glucose 77 mg/dL (65-115) 10/20/22 16:52 Calculated Osmolality 290 mOsm/kg (285-295) 10/20/22 16:52 Calcium 8.8 mg/dL (8.5-10.5) 10/20/22 16:52 Total Bilirubin 0.2 mg/dL (0.15-1.2) 10/20/22 16:52 AST 11 U/L (0-32) 10/20/22 16:52 ALT 10 U/L (0-33) 10/20/22 16:52 Alkaline Phosphatase 69 U/L (35-105) 10/20/22 16:52 Troponin T Baseline 6 ng/L (0-10) 10/20/22 16:52 Troponin T 120 Minute 6.00 ng/L (0-10) 10/20/22 18:20 Delta Troponin T 0 ABS# (0-10) 10/20/22 18:20 NT-Pro-B Natriuret Pep 119 pg/mL (0-125) 10/20/22 16:52 Total Protein 6.9 g/dL (6.6-8.7) 10/20/22 16:52 Albumin 4.6 g/dL (3.5-5.2) 10/20/22 16:52 Globulin 2.3 g/dL (1.3-4.6) 10/20/22 16:52 HCG, Qual Negative (Negative) 10/20/22 16:52 EKG Data EKG 1: EKG interpretation date: 10/20/22 Interpretation: Sinus rhythm, 72 bpm, no ST segment elevation or depression seen. Other EKG comments: Chest X-Ray 10/20/22 16:26 IMPRESSION: No acute findings. Discharge Plan Discharge Patient Disposition: Home Clinical Impression: Heart palpitations Condition: Stable Prescriptions: No Action furosemide 20 mg tablet 20 mg PO DAILY diltiazem HCl 120 mg capsule,extended release 12 hr 120 mg PO DAILY ambrisentan 10 mg tablet 10 mg PO DAILY tadalafil (pulm. hypertension) 20 mg tablet 40 mg PO DAILY Rx Instructions: administer approximately 30min before sexual activity; do not use more than 1 dose per 24hrs aspirin [Adult Aspirin Regimen] 81 mg tablet,delayed release (DR/EC) 81 mg PO DAILY Discharge Orders: Discharge ED (Routine); Ordered 10/20/22 Ordered By: Ramses Ortega Referrals: Marilee Randall NP [Primary Care Provider] - Discharge Diet: Regular Discharge Activity: Increase activity as tolerated Patient Instructions: Heart Palpitations (DC) Activity Restrictions/Additional Instructions: Follow-up with pellet post inspector at your scheduled appointment on November 04. Continue taking all home medications as previously prescribed. Return to the ER or your medical provider if condition worsens. Please read and understand discharge instructions. Thank you for choosing [facility] for your healthcare needs today. Please realize this is an emergency room and that we are providing you with a medical screening exam and this may not be complete and all inclusive of all the testing and or work up that you may need to determine your ailment or severity of your illness. It is very important that you follow up as instructed or that you return to the Emergency Department should you have concerns or if your condition changes or worsens in any way. Sign Out Sign Out Data: Patient Sign Out occurred on 10/20/22 at 17:11. Patient's care was discussed, and care was transferred from to ROSA MARIA Felipe. Coding Level of Care Code ED Syrup Maker for Di Garcia
[2022-10-20 17:11] LABS: Basophils % 0.5 %; Eosinophils # 0.3 10^3/uL (0.0-0.8); Eosinophils % 4.7 %; Hematocrit 41.8 % (37.0-47.0); Hemoglobin 13.5 g/dL (11.5-15.3); Lymphocytes # 2.6 10^3/uL (0.8-4.8); Lymphocytes % 40.6 %; Mean Corpuscular HGB Conc 32.3 g/dL (30.0-36.0); Mean Corpuscular Volume 89.9 fl (81-99); Mean Platelet Volume 10.5 fL (7.4-10.4); Monocytes # 0.4 10^3/uL (0.2-0.9); Monocytes % 6.1 %; Neutrophils # 3.09 10^3/uL (1.8-7.7); Neutrophils % 47.9 %; Nucleated Red Blood Cells % 0 %; Platelet Count 202 10^3/cmm (130-400); Red Blood Count 4.65 10^6/uL (4.1-5.3); Red Cell Distribution Width 12.3 % (12.1-15.1); White Blood Count 6.4 10^3/uL (4.0-10.0)
[2022-10-20 17:31] LABS: HCG, Serum Qual Negative (Negative)
[2022-10-20 17:34] VITALS: BP 113/70; PULSE 84; RESP 16; O2SAT 97
[2022-10-20 17:37] LABS: Troponin(5th) Baseline 6 ng/L (0-10)
[2022-10-20 17:46] LABS: Alanine Aminotransferase 10 U/L (0-33); Albumin Level 4.6 g/dL (3.5-5.2); Alkaline Phosphatase 69 U/L (35-105); Aspartate Amino Transferase 11 U/L (0-32); Blood Urea Nitrogen 11 mg/dL (6-20); Calcium 8.8 mg/dL (8.5-10.5); Carbon Dioxide 23 mmol/L (22-29); Chloride 106 mmol/L (98-107); Creatinine Clr Calc Pharmacy 145.4138; Globulin 2.3 g/dL (1.3-4.6); Glomerular Filtration Rate 146.9 mL/min (90-130); Glucose 77 mg/dL (65-115); NT Pro B Type Natriuretic Pept 119 pg/mL (0-125); Osmolality Calculated 290 mOsm/kg (285-295); Sodium 141 mmol/L (136-145); Total Bilirubin 0.2 mg/dL (0.15-1.2); Total Protein 6.9 g/dL (6.6-8.7)
[2022-10-20 17:47] LABS: Anion Gap 15.9 (5-19); Potassium 3.9 mmol/L (3.5-5.1)
--- NOTE | 2022-10-20 18:26 | ECG_ITS ---
[facility] Test Date: 2022-10-20 Pat Name: Lily Vasquez Department: Room: Gender: Female Lead Applications Developer: : 1995 Requested By: Rgeina Robbins Order Number: [id number] Hernandez MD: Leeanna Panchal M.D. Measurements Intervals Woodman Rate: 72 P: 36 CA: 168 QRS: 85 QRSD: 89 T: 60 QT: 397 QTc: 437 Interpretive Statements SINUS RHYTHM POSSIBLE RIGHT VENTRICULAR CONDUCTION DELAY [RSR (QR) IN V1/V2] ST DEVIATION AND MODERATE T-WAVE ABNORMALITY, CONSIDER ANTERIOR ISCHEMIA [-0.1+ mV T-WAVE IN V3/V4] Compared to ECG 10/20/2022 15:39:24 No significant changes Electronically Signed On 10-21-2022 22:34:36 CDT by Leeanna Panchal M.D. [email or web address]
[2022-10-20 18:47] VITALS: BP 104/80; PULSE 80; RESP 13; O2SAT 97
[2022-10-20 19:59] LABS: Troponin 5 2HR Delta 0 ABS# (0-10)
== END 2022-10-20 20:17 | disposition home or self-care (01) ==
PROVIDERS: Physician Assistant; Emergency Provider Physician Assistant; PCP Nurse Practitioner Family
DX: R00.2 Palpitations (principal); Z79.82 Long term (current) use of aspirin; F17.290 Nicotine dependence, other tobacco product, uncomplicated
CPT/HCPCS: 71045; 80053; 83880; 84484; 84703; 85025; 93005; 99285

== ENCOUNTER → 2023-02-04 09:33 | Outpatient (BNVA) | payer OTHER, MEDICAID, SELFPAY | PROVIDERS: PCP Nurse Practitioner Family; Visit Provider Nurse Practitioner Family | DX: Z51.81 Encounter for therapeutic drug level monitoring (principal); R05.9 Cough, unspecified; R09.89 Other specified symptoms and signs involving the circulatory and respiratory systems; K21.9 Gastro-esophageal reflux disease without esophagitis; F41.1 Generalized anxiety disorder | CPT/HCPCS: 81025; 87426 ==

== ENCOUNTER → 2023-04-13 14:21 | Outpatient (BNVA) | payer OTHER, MEDICAID, SELFPAY | PROVIDERS: PCP Nurse Practitioner Family; Visit Provider Nurse Practitioner Family | DX: R06.02 Shortness of breath (principal); R73.9 Hyperglycemia, unspecified | CPT/HCPCS: 83036 ==

== ENCOUNTER 2024-10-31 20:18 | Emergency (ER) | payer SELFPAY ==
[2024-10-31 20:23] VITALS: BP 130/81; PULSE 97; RESP 16; TEMP 36.7; O2SAT 97; BMI 31.1
--- NOTE | 2024-10-31 20:37 | XRR_ITS ---
PROCEDURE INFORMATION: Exam: XR Chest Exam date and time: 10/31/2024 8:45 PM Age: 28 years old Clinical indication: Cough and shortness of breath; Additional info: SOB TECHNIQUE: Imaging protocol: Radiologic exam of the chest. Views: 1 view. COMPARISON: CR XR chest 1V portable [id number] 10/20/2022 4:31 PM FINDINGS: Lungs: Unremarkable. No consolidation. Pleural spaces: Unremarkable. No pleural effusion. No pneumothorax. Heart/Mediastinum: Unremarkable. No cardiomegaly. Bones/joints: Unremarkable. XR/XR chest 1V portable [id number] IMPRESSION: No acute findings.
[2024-10-31 22:56] LABS: Influenza A NEGATIVE (Negative); Influenza B NEGATIVE (Negative); Respiratory Syncytial Virus Ce NEGATIVE (Negative); SARS-CoV-2 PCR NEGATIVE (Negative)
[2024-10-31 23:18] VITALS: BP 118/69; PULSE 104; RESP 16; O2SAT 91
[2024-10-31 23:30] VITALS: BP 104/77; PULSE 86; O2SAT 94
[2024-11-01] VITALS: BP 119/71; PULSE 75; O2SAT 93
[2024-11-01 00:23] VITALS: BP 105/64; PULSE 82; O2SAT 96
--- NOTE | 2024-11-01 05:27 | W.ED.SOB ---
HPI - SOB/Dyspnea General: Chief Complaint: Shortness of Breath/Dyspnea Stated Complaint: dr benedicto sent Time Seen by Provider: 10/31/24 23:47 History of Present Illness: HPI Narrative: Patient is a generally well-appearing 1-year-old female seen for shortness of breath and cough. Symptoms have been ongoing for the last 2 days. She has a history of pulmonary hypertension and her pulmonary hypertension specialist at [facility] urged her to come to the emergency department for evaluation and get a chest x-ray. She has not had any medication changes and there are no other sick contacts in the home, but she does feel rundown as if she has a viral infection and her cough is dry without productive nature. The she is very mildly orthopneic. She states that intermittently she had oxygen saturations just below 90% but she remains roughly 95% at rest while here. Related Data Home Medications ?Medication ?Instructions ?Recorded ?Confirmed furosemide 20 mg tablet 20 mg PO DAILY 03/17/21 04/13/23 ambrisentan 10 mg tablet 10 mg PO DAILY 08/05/21 04/13/23 diltiazem HCl 120 mg 120 mg PO DAILY 08/05/21 04/13/23 capsule,extended release 12 hr tadalafil (pulm. hypertension) 20 40 mg PO DAILY 08/05/21 04/13/23 mg tablet (pulmonary hypertension) aspirin 81 mg tablet,delayed 81 mg PO DAILY 08/26/22 04/13/23 release (Adult Aspirin Regimen) Previous Rx's ?Medication ?Instructions ?Recorded buspirone 5 mg tablet 5 mg PO BID #60 tabs 02/04/23 omeprazole 20 mg capsule,delayed 20 mg PO DAILY 8 weeks #60 caps 02/04/23 release Allergies Allergy/AdvReac Type Severity Reaction Status Date / Time amoxicillin Allergy ALGY-Hives Verified 10/31/24 20:27 [facility] ED [facility]: Medical History Acute depression ASD (atrial septal defect) BMI 25.0-25.9,adult Dysmenorrhea, unspecified Exposure to COVID-19 virus mar 2020 Flu-like symptoms Gastroenteritis Generalized anxiety disorder History of ovarian cyst PFO with atrial septal aneurysm PMS (premenstrual syndrome) Pre-syncope Sinusitis, acute frontal Tiredness Surgical History History of tonsillectomy Family History Grandmother Cancer Paternal -- stomach and skin Grandfather Hyperlipidemia Paternal Hypertension Paternal Mother Ovarian cyst Denies family history of Diabetes Clotting disorder Chronic kidney disease (CKD) Bleeding disorder Thyroid disease Stroke Social History Smoking and tobacco/nicotine status: current some day tobacco/nicotine user e-cigarettes E-Cigarette Details: vaporizer device Quit status (tobacco/nicotine): has tried quititng Number of times tried to quit tobacco: 10 Second hand smoke exposure: No Alcohol intake: never Physical Exam Const: COMMON NORMALS: no acute distress, patient oriented x3 and alert HENMT: COMMON NORMALS: normocephalic and atraumatic HEAD & SCALP: normocephalic and atraumatic Eye: COMMON NORMALS: Equal, round and reactive pupils present, EOMs intact bilaterally and no scleral icterus PUPIL: Yes Equal, round and reactive pupils present Resp: COMMON NORMALS: normal respiratory effort and No retractions Cardio: COMMON NORMALS: regular rate, regular rhythm and No murmurs present (Cardio) RATE: regular rate RHYTHM: regular rhythm GI: COMMON NORMALS: Normal to inspection, nondistended, normoactive bowel sounds present, Soft to palpation and non-tender PALPATION: Yes Soft to palpation Neuro: COMMON NORMALS: patient oriented x3 SENSORIUM/ORIENTATION: Yes alert Skin: COMMON NORMALS: no rashes or lesions noted GENERAL SKIN EXAM: no rashes or lesions noted Course Vital Signs: Vital signs: Vital Signs Temperature 98.0 F 10/31/24 20:23 Pulse Rate 82 11/01/24 00:23 Respiratory Rate 16 10/31/24 23:18 Blood Pressure 105/64 11/01/24 00:23 Pulse Oximetry 96 11/01/24 00:23 Oxygen Delivery Me thod Room Air 10/31/24 20:23 MDM - SOB/Dyspnea Medical Decision Making In summary, patient is a 1-year-old female with past history of pulmonary hypertension send the emergency department to rule out worsening chronic disease. Fortunately, x-ray is unremarkable. I strongly suspect viral etiology to her symptoms and do not feel she requires hospitalization or any specific intervention with respect to her pulmonary hypertension. She agrees. She will be discharged home in stable and improved condition. Lab Data Labs/Radiology: Radiology Impressions Chest X-Ray 10/31/24 20:37 IMPRESSION: No acute findings. Laboratory Results Influenza A (PCR) Negative (Negative) 10/31/24 21:24 Influenza Type B (PCR) Negative (Negative) 10/31/24 21:24 RSV (PCR) Negative (Negative) 10/31/24 21:24 SARS-CoV-2 (PCR) Negative (Negative) 10/31/24 21:24 All radiology interpretation(s) finalized by discharge Discharge Plan Discharge Patient Disposition: Home Clinical Impression: URI (upper respiratory infection) Condition: Stable Prescriptions: No Action furosemide 20 mg tablet 20 mg PO DAILY diltiazem HCl 120 mg capsule,extended release 12 hr 120 mg PO DAILY ambrisentan 10 mg tablet 10 mg PO DAILY tadalafil (pulm. hypertension) 20 mg tablet 40 mg PO DAILY Rx Instructions: administer approximately 30min before sexual activity; do not use more than 1 dose per 24hrs aspirin [Adult Aspirin Regimen] 81 mg tablet,delayed release (DR/EC) 81 mg PO DAILY buspirone 5 mg tablet 5 mg PO BID Qty: 60 0RF omeprazole 20 mg capsule,delayed release(DR/EC) 20 mg PO DAILY 56 Days Qty: 60 0RF Discharge Orders: Discharge ED (Routine); Ordered 11/01/24 Ordered By: Shlomo Demarco Referrals: Marilee Randall NP [Primary Care Provider, Family Practice] Patient Instructions: Upper Respiratory Infection (ED) Activity Restrictions/Additional Instructions: Your chest x-ray does not show evidence of pneumonia or worsening pulmonary hypertension. Your symptoms are most likely indicative of a viral upper respiratory infection which, when paired with your pulmonary hypertension, can cause some low oxygen readings at night. While in the emergency department your oxygen saturation has remained at roughly 94% and your blood pressure and heart rate and respiratory effort are all within normal limits. Print Language: Malaysian Coding Level of Care Code ED Nurse Anesthetist for Di Garcia
== END 2024-11-01 00:24 | disposition home or self-care (01) ==
PROVIDERS: Emergency Provider Student in an Organized Health Care Education/Training Program; PCP Nurse Practitioner Family
DX: J06.9 Acute upper respiratory infection, unspecified (principal); Z11.52 Encounter for screening for COVID-19; Z79.82 Long term (current) use of aspirin
CPT/HCPCS: 71045; 87637; 99284